=== PATIENT | male | born 1950 | race Caucasian/White ===

== ENCOUNTER 2016-07-28 06:57 | Day surgery (SDC) | payer MEDICARE, OTHER ==
[2016-07-28] MEDS ORDERED: LACTATED RINGERS 900 ML IV ONE (07:55)
[2016-07-28] MEDS ORDERED: MIDAZOLAM 2 MG/2 ML VIAL IVP ONE (08:40)
[2016-07-28] MEDS ORDERED: fentaNYL 100 MCG/2 ML VIAL IVP ONE (08:40)
== END 2016-07-28 06:58 | disposition home or self-care (01) ==
PROC: 0DBN8ZX Excision of Sigmoid Colon, Via Natural or Artificial Opening Endoscopic, Diagnostic (ICD-10-PCS; 2016-07-28)
PROC: 0DBP8ZX Excision of Rectum, Via Natural or Artificial Opening Endoscopic, Diagnostic (ICD-10-PCS; 2016-07-28)
PROC: 0DBM8ZX Excision of Descending Colon, Via Natural or Artificial Opening Endoscopic, Diagnostic (ICD-10-PCS; principal; 2016-07-28 08:15)
DX: Z86.010 Personal history of colon polyps (principal); K57.30 Diverticulosis of large intestine without perforation or abscess without bleeding; K64.8 Other hemorrhoids; D12.4 Benign neoplasm of descending colon; D12.5 Benign neoplasm of sigmoid colon; K62.1 Rectal polyp; Z79.82 Long term (current) use of aspirin; E11.42 Type 2 diabetes mellitus with diabetic polyneuropathy; E11.22 Type 2 diabetes mellitus with diabetic chronic kidney disease; N18.9 Chronic kidney disease, unspecified; I12.9 Hypertensive chronic kidney disease with stage 1 through stage 4 chronic kidney disease, or unspecified chronic kidney disease; Z85.6 Personal history of leukemia; Z98.49 Cataract extraction status, unspecified eye; Z83.3 Family history of diabetes mellitus; Z82.49 Family history of ischemic heart disease and other diseases of the circulatory system; Z79.84 Long term (current) use of oral hypoglycemic drugs
CPT/HCPCS: 45380; 45385; J7120

== ENCOUNTER 2016-08-19 14:59 | Outpatient (CLI) | payer MEDICARE, OTHER | END 2016-08-19 15:00 | disposition home or self-care (01) | DX: E11.9 Type 2 diabetes mellitus without complications (principal); Z12.5 Encounter for screening for malignant neoplasm of prostate | CPT/HCPCS: 36415; 83036; G0103 ==

== ENCOUNTER 2016-08-20 10:59 | Outpatient (CLI) | payer MEDICARE, OTHER | END 2016-08-20 23:59 | DX: R97.20 Elevated prostate specific antigen [PSA] (principal) ==

== ENCOUNTER 2016-10-11 08:45 | Outpatient (CLI) | payer MEDICARE, OTHER | END 2016-10-11 08:46 | disposition home or self-care (01) | LOC: LAB.R 08:45 | PROVIDERS: ATTEND Family Medicine | DX: R19.7 Diarrhea, unspecified (principal) | CPT/HCPCS: 81599; 83630; 87045; 87046; 87177; 87209; 87329; 87493 ==

== ENCOUNTER 2016-11-10 08:14 | Outpatient (CLI) | payer MEDICARE, OTHER ==
[2016-11-10 12:56] LABS: HEMOGLOBIN A1C 0.63 g/dL
[2016-11-10 13:07] LABS: ALBUMIN/GLOBULIN RATIO 1.4 (1.0-2.2); BILIRUBIN,TOTAL 0.6 mg/dL (0.2-1.0); BUN - BLOOD UREA NITROGEN 25 mg/dL (6-20); CARBON DIOXIDE - CO2 25 mmol/L (21-32); CHLORIDE 107 mmol/L (101-111); CHOL/HDL RATIO 4.8 (<5.0); CHOLESTEROL 138 mg/dL; CREATININE 1.4 mg/dL (0.6-1.2); GFR - MDRD 51 (>89); GLUCOSE 139 mg/dL (70-100); HDL CHOLESTEROL 29 mg/dL; POTASSIUM 4.8 mmol/L (3.5-5.0); SODIUM 140 mmol/L (135-145); TOTAL PROTEIN 6.6 g/dL (6.7-8.2); TRIGLYCERIDES 256 mg/dL; VLDL CHOLESTEROL 51 mg/dL
== END 2016-11-10 08:15 | disposition home or self-care (01) ==
LOC: LAB.WCP 08:14
PROVIDERS: ATTEND Family Medicine
DX: E78.9 Disorder of lipoprotein metabolism, unspecified (principal); D34 Benign neoplasm of thyroid gland
CPT/HCPCS: 36415; 80053; 80061; 83036; 84443

== ENCOUNTER 2016-12-24 05:23 | Outpatient (CLI) | payer MEDICARE, OTHER ==
--- NOTE | 2016-12-26 19:21 | PREOP HISTORY & PHYSICAL ---
DATE OF ADMISSION/SURGERY: 12/24/2016. LOCATION: ICU. CHIEF COMPLAINT: Near syncope and shaking chills. HISTORY OF THE PRESENT ILLNESS: This is a 66-year-old white male with a history of diabetes, sleep apnea, hypothyroidism, hypertension. His chart indicates that he has congestive heart failure, but he does not give this history to me. The patient states that he was in his usual state of health until approximately 1 week ago when he started to develop weakness and about 2 days ago started to develop shaking and chills. On the morning of admission, he was lethargic and nearly not arousable, and his called an ambulance. He was stabilized at the scene because of low blood pressure by being given fluid resuscitation and the ambulance brought him to the emergency room. There, he was found to have a fever, elevated white blood count and also complained of dysuria for approximately 36 hours' duration. He has never had these symptoms before. There was no pain in the lower back. He denied any pyuria. He denied any hematuria at home but did develop hematuria since being catheterized in the emergency room. PAST MEDICAL HISTORY: Includes hypertension, heart murmur, sleep apnea, diabetes on insulin and oral agents, and hypothyroidism. PAST SURGICAL HISTORY: Includes colonoscopy, cataracts, tonsils, and adenoid surgery. ALLERGIES: NONE. MEDICATIONS AT HOME 1. Synthroid 75 mcg p.o. daily. 2. Lisinopril 20 mg p.o. daily. 3. Metformin 1000 mg p.o. b.i.d. 4. Simvastatin 40 mg p.o. daily. 5. Ambien p.r.n. 6. Januvia 100 mg p.o. daily. 7. Baby aspirin daily. 8. Glucotrol XL 5 mg daily. 9. Lyrica 100 mg p.o. b.i.d. 10. Tanzeum 30 mg that he received once in July. FAMILY HISTORY: Noncontributory. SOCIAL HISTORY: He lives with his family. 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 He is a nonsmoker. He drinks alcohol very rarely. PHYSICAL EXAMINATION GENERAL: Physical exam revealed a white male who was supine and appeared fatigued. He was arousable, oriented x3. VITAL SIGNS: Blood pressure 96/55, heart rate 132 and sinus tachycardia, temperature 104. HEAD, EYES, EARS, NOSE, AND THROAT: Dry oral mucosa. Normal skin turgor. Red cheeks. NECK: No JVD in the supine position. CHEST: Clear at the anterior bases. HEART: Heart sounds normal but distant with no murmur, rub, or gallop. ABDOMEN: Soft, nontender, with positive bowel sounds. EXTREMITIES: No clubbing, cyanosis, or edema. NEUROLOGIC: Grossly intact. LABORATORY DATA: Sodium 138, potassium 5.6, CO2 18, BUN 32, creatinine 1.6, glucose 194. White blood count 5.0, hemoglobin 11.6, hematocrit 34.6, platelet count 82. Chest x-ray: No acute process. EKG: Sinus tachycardia at a rate of 129, right bundle branch block, left posterior fascicular block and nonspecific diffuse ST segment. There was no old EKG for comparison. IMPRESSION 1. Urosepsis with evidence of hypotension and recent dysuria. 2. Diabetes. 3. Hypotension secondary to urosepsis. 4. Acute renal insufficiency. 5. History of hypertension. RECOMMENDATIONS AND PLAN: Begin IV fluid resuscitation with saline at 125-150 mL an hour, given no evidence of congestive heart failure on chest x-ray and no history of the same per the patient. Begin IV antibiotics with throat coverage and change antibiotic coverage depending on results of his urine and blood cultures. Obtain urine and blood cultures. Continue with his diabetic management. Hold his blood pressure medications until blood pressure has improved. DVT prophylaxis will be postponed until hematuria is cleared. Continue with diabetic diet and cover his glucose fingerstick checks. Thank you for allowing me to participate in the care of this patient. JOB #: [id number] [facility] JOB #:[id number] [facility]
== END 2016-12-24 05:24 | disposition critical access hospital (66) ==
LOC: EMS 05:23
PROVIDERS: ATTEND Surgery
DX: R25.1 Tremor, unspecified (principal)
CPT/HCPCS: A0425; A0427

== ENCOUNTER 2016-12-24 05:42 | Inpatient (IN) | payer MEDICARE, OTHER ==
[2016-12-24] MEDS ORDERED: ACETAMINOPHEN 1,000 MG/100 ML 100 ML IV STA (05:48)
[2016-12-24] MEDS ORDERED: SODIUM CHLORIDE 0.9% 1,000 ML IV ONE ×3 (05:48→09:24)
[2016-12-24] MEDS ORDERED: ACETAMINOPHEN 1,000 MG/100 ML 100 ML IV ONE (06:05)
[2016-12-24 06:10] LABS: BASOPHILS % (AUTO) 0.3 %; EOSINOPHILS % (AUTO) 0.3 %; HCT - HEMATOCRIT 40.3 % (42.0-52.0); HGB - HEMOGLOBIN 13.5 g/dL (14.0-18.0); LYMPHOCYTES # (AUTO) 1.1 10^3/uL (1.5-3.5); LYMPHOCYTES % (AUTO) 26.4 %; MEAN CORPUSCULAR HEMOGLOBIN 30.7 pg (27.0-31.0); MEAN CORPUSCULAR HGB CONC 33.5 g/dL (32.0-36.0); MEAN CORPUSCULAR VOLUME 91.8 fL (80.0-94.0); MEAN PLATELET VOLUME 7.5 fL (7.4-11.4); MONOCYTES # (AUTO) 0.1 10^3/uL (0.0-1.0); MONOCYTES % (AUTO) 3.4 %; NEUTROPHILS # (AUTO) 2.8 10^3/uL (1.5-6.6); NEUTROPHILS % (AUTO) 69.6 %; RED BLOOD COUNT 4.39 10^6/uL (4.70-6.10); RED CELL DISTRIBUTION WIDTH 14.6 % (12.0-15.0)
[2016-12-24 06:27] LABS: ALBUMIN/GLOBULIN RATIO 1.3 (1.0-2.2); BILIRUBIN,TOTAL 1.2 mg/dL (0.2-1.0); CALCIUM 8.6 mg/dL (8.5-10.3); CREATININE 1.9 mg/dL (0.6-1.2); TOTAL PROTEIN 6.8 g/dL (6.7-8.2)
[2016-12-24] MEDS ORDERED: ALBUTEROL NEB 2.5 MG/3 ML INH STA (06:30)
[2016-12-24] MEDS ORDERED: ALBUTEROL SULF 0.5% 20ML SOLUTION INH ONE (06:38)
[2016-12-24] MEDS ORDERED: ALBUTEROL NEB 2.5 MG/3 ML INH ONE (06:39)
--- NOTE | 2016-12-24 06:45 | XRAY Preliminary Report ---
Exam: XR Chest 1 View IMPRESSION: No acute process seen in the chest. [facility] SITE ID: [id number]
--- NOTE | 2016-12-24 06:48 | XRAY Report ---
EXAM: CHEST RADIOGRAPHY EXAM DATE: 12/24/2016 06:20 AM. CLINICAL HISTORY: Fever, rigors. COMPARISON: 01/05/2012. TECHNIQUE: 1 view. FINDINGS: Lungs/Pleura: No focal opacities evident. No pleural effusion. No pneumothorax. Mediastinum: Within exam limitations, cardiomediastinal contour is normal. Other: Mild right hemidiaphragm elevation. IMPRESSION: No acute process seen in the chest. [facility] Referring Provider Line: [phone] SITE ID: [id number]
--- NOTE | 2016-12-24 06:57 | ED Physician Documentation ---
PD HPI FEVER - Stated complaint Stated Complaint: UNCONTROLABLE SHAKING - Chief complaint Chief Complaint: General - History obtained from History obtained from: Patient, Family, EMS - History of Present Illness Timing - onset: Yesterday Timing details: Gradual onset, Still present, Waxing and waning Associated symptoms: Chills, Sweats, Rigors Contributing factors: No: Sick contact, Travel, Immunocompromised Similar symptoms before: No diagnosis Recently seen: Not recently seen - Additional information Additional information: Patient is a 66 year old male with a history of diabetes and hairy cell lukemia in remission who is presenting to the emergency department for fevers and rigors. According to ems and family, yesterday patient was spiking some fevers but they were controlled by ibuprofen. By last night the patient's fever had broke. This morning the heard the patient stirring and when she saw him she was shaking so they called ems. when ems arrived patietn was febrile and less coherent. IV was started and patient was treated with zofran. Review of Systems Constitutional: reports: Fever, Chills Eyes: denies: Photophobia Ears: denies: Ear pain, Drainage/discharge Nose: denies: Congestion Throat: denies: Sore throat Respiratory: denies: Cough, Wheezing GI: reports: Nausea. denies: Vomiting : reports: Frequency Skin: denies: Rash, Lesions Musculoskeletal: denies: Extremity pain Neurologic: reports: Confused, Altered mental status. denies: Focal weakness, Numbness, Headache, Head injury, LOC Immunocompromised: denies: Immunocompromised PD PAST MEDICAL HISTORY - Past Medical History Cardiovascular: Congestive heart failure, Hypertension, Murmur Respiratory: Sleep apnea Neuro: None Endocrine/Autoimmune: Type 2 diabetes, HyPOthyroidism GI: None : None HEENT: None Psych: None Musculoskeletal: None Derm: None - Past Surgical History Past Surgical History: Yes General: Colonoscopy HEENT: Cataracts, Tonsil/Adenoidectomy - Present Medications Home Medications: Ambulatory Orders Medication Instructions Recorded Confirmed Levothyroxine Sodium [Synthroid] 75 mcg PO DAILY 10/05/12 12/24/16 Lisinopril 20 mg PO DAILY 10/05/12 12/24/16 Metformin HCl [Metformin 1,000 mg PO BID 10/05/12 12/24/16 Hydrochloride] Simvastatin 40 mg PO DAILY 10/05/12 12/24/16 Zolpidem Tartrate [Ambien] 10 mg PO DAILY PRN 10/05/12 12/24/16 SITagliptin [Januvia] 100 mg PO DAILY 01/02/15 12/24/16 Aspirin [Aspirin EC] 81 mg PO DAILY 02/20/15 12/24/16 Glipizide [Glucotrol Xl] 5 mg PO DAILY 02/20/15 12/24/16 Pregabalin [Lyrica] 100 mg PO BID 02/20/15 12/24/16 Albiglutide [Tanzeum] 30 mg IJ ONCE 07/08/16 12/24/16 - Allergies Allergies/Adverse Reactions: Allergies Allergy/AdvReac Type Severity Reaction Status Date / Time No Known Drug Allergies Allergy Verified 04/15/16 00:57 - Social History Does the pt smoke?: No Smoking Status: Never smoker Does the pt drink ETOH?: No Does the pt have substance abuse?: No - Immunizations Immunizations are current?: Yes - POLST Patient has POLST: No PD ED PE EXPANDED - General General: Alert, Other (ill appearing, diaphoretic) - HEENT HEENT: Atraumatic, Dry mucous membranes. No: Head injury - Cardiac Cardiac: Tachy - Respiratory Respiratory: No: Distress, Labored, Wheezing - Abdomen Abdomen: No: Tender to palpation, Rebound, Guarding - Derm Derm: Diaphoretic. No: Rash - GCS Eye Opening: Spontaneous Motor: Localizes to Pain Verbal: Confused Total: 13 Results - Vitals Vitals: Vital Signs - 24 hr 12/24/16 12/24/16 12/24/16 05:45 06:43 06:48 Temperature 104.0 C H Heart Rate 132 H 104 H 104 H Respiratory 24 18 16 Rate Blood Pressure 131/61 H 130/57 L O2 Saturation 93 94 12/24/16 12/24/16 12/24/16 07:10 07:45 09:00 Temperature 37.3 C 36.8 C Heart Rate 108 H 110 H 101 H Respiratory 23 24 24 Rate Blood Pressure 105/51 L 106/52 L 96/55 L O2 Saturation 96 98 95 Oxygen O2 Source Room air - EKG (time done) 0608 Rate: Rate (enter#) (129) Rhythm: Sinus tachycardia [place]: Normal Intervals: RBBB Ischemia: ST depression Compare to prior EKG: Unchanged from prior EKG, Other (similar to previous, no tachycardic no bigeminy) - Labs Labs: Microbiology 12/24/16 06:07 Blood Culture - Preliminary Blood - Left Arm 12/24/16 06:00 Blood Culture - Preliminary Blood - Left Hand Laboratory Tests 12/24/16 12/24/16 12/24/16 06:00 06:00 06:00 WBC 4.0 L RBC 4.39 L Hgb 13.5 L Hct 40.3 L MCV 91.8 MCH 30.7 MCHC 33.5 RDW 14.6 Plt Count 97 L MPV 7.5 Neut # 2.8 Lymph # 1.1 L [place] # 0.1 Eos # 0.0 Baso # 0.0 Absolute Nucleated RBC 0.00 Nucleated RBCs 0.0 Sodium 135 Potassium 6.0 H* Chloride 108 Carbon Dioxide 17 L Anion Gap 10.0 BUN 34 H Creatinine 1.9 H Estimated GFR (MDRD) 36 L Glucose 283 H Glycated Hemoglobin Estim Average Glucose Lactic Acid 2.2 Calcium 8.6 Total Bilirubin 1.2 H AST 32 ALT 34 Alkaline Phosphatase 47 Total Creatine Kinase CK-MB (CK-2) Troponin I Total Protein 6.8 Albumin 3.8 Globulin 3.0 Albumin/Globulin Ratio 1.3 Lipase 44 TSH Urine Color Urine Clarity Urine pH Ur Specific [place] Urine Protein Urine Glucose (UA) Urine Ketones Urine Occult Blood Urine Nitrite Urine Bilirubin Urine Urobilinogen Ur Leukocyte Esterase Urine RBC Urine WBC Ur Epithelial Cells Ur Squamous Epith Cells Urine Bacteria Urine Casts Ur Microscopic Review Urine Culture Comments 12/24/16 12/24/16 12/24/16 06:00 06:00 06:00 WBC RBC Hgb Hct MCV MCH MCHC RDW Plt Count MPV Neut # Lymph # [place] # Eos # Baso # Absolute Nucleated RBC Nucleated RBCs Sodium Potassium Chloride Carbon Dioxide Anion Gap BUN Creatinine Estimated GFR (MDRD) Glucose Glycated Hemoglobin Estim Average Glucose Lactic Acid Calcium Total Bilirubin AST ALT Alkaline Phosphatase Total Creatine Kinase 70 CK-MB (CK-2) Troponin I < 0.04 Total Protein Albumin Globulin Albumin/Globulin Ratio Lipase TSH 1.30 Urine Color Urine Clarity Urine pH Ur Specific [place] Urine Protein Urine Glucose (UA) Urine Ketones Urine Occult Blood Urine Nitrite Urine Bilirubin Urine Urobilinogen Ur Leukocyte Esterase Urine RBC Urine WBC Ur Epithelial Cells Ur Squamous Epith Cells Urine Bacteria Urine Casts Ur Microscopic Review Urine Culture Comments 12/24/16 12/24/1617 06:00 06:00 06:00 WBC RBC Hgb Hct MCV MCH MCHC RDW Plt Count MPV Neut # Lymph # [place] # Eos # Baso # Absolute Nucleated RBC Nucleated RBCs Sodium Potassium 4.6 Chloride Carbon Dioxide Anion Gap BUN Creatinine Estimated GFR (MDRD) Glucose Glycated Hemoglobin 6.4 H Estim Average Glucose 137 H Lactic Acid Calcium Total Bilirubin AST ALT Alkaline Phosphatase Total Creatine Kinase CK-MB (CK-2) 0.7 Troponin I Total Protein Albumin Globulin Albumin/Globulin Ratio Lipase TSH Urine Color Urine Clarity Urine pH Ur Specific [place] Urine Protein Urine Glucose (UA) Urine Ketones Urine Occult Blood Urine Nitrite Urine Bilirubin Urine Urobilinogen Ur Leukocyte Esterase Urine RBC Urine WBC Ur Epithelial Cells Ur Squamous Epith Cells Urine Bacteria Urine Casts Ur Microscopic Review Urine Culture Comments 12/24/16 07:20 WBC RBC Hgb Hct MCV MCH MCHC RDW Plt Count MPV Neut # Lymph # [place] # Eos # Baso # Absolute Nucleated RBC Nucleated RBCs Sodium Potassium Chloride Carbon Dioxide Anion Gap BUN Creatinine Estimated GFR (MDRD) Glucose Glycated Hemoglobin Estim Average Glucose Lactic Acid Calcium Total Bilirubin AST ALT Alkaline Phosphatase Total Creatine Kinase CK-MB (CK-2) Troponin I Total Protein Albumin Globulin Albumin/Globulin Ratio Lipase TSH Urine Color DARK YELLOW Urine Clarity HAZY Urine pH 6.0 Ur Specific [place] 1.025 Urine Protein 30 H Urine Glucose (UA) NEGATIVE Urine Ketones NEGATIVE Urine Occult Blood NEGATIVE Urine Nitrite NEGATIVE Urine Bilirubin NEGATIVE Urine Urobilinogen 0.2 (NORMAL) Ur Leukocyte Esterase NEGATIVE Urine RBC None Seen Urine WBC 6-10 H Ur Epithelial Cells RARE Renal Tubular Ur Squamous Epith Cells NONE SEEN Urine Bacteria Moderate H Urine Casts 6-10 Course Granular Ur Microscopic Review INDICATED Urine Culture Comments INDICATED - Rads (name of study) chest x-ray Radiology: Final report received (no acute abnormality) PD MEDICAL DECISION MAKING - ED course Complexity details: reviewed old records, reviewed results, re-evaluated patient , considered differential, d/w patient, d/w family ED course: Patient was seen and examined at bedside. IV access was gained and labs were drawn. blood cultures were drawn and patient was started on a fluid bolus and treated with IV tyenol. chest x-ray was performed and within normal limits. Patient's tachycardia improved. Patient was signed over to Dr. Whiting pending disposition and plan. Departure - Departure Disposition: 66 [facility] DC/Xfer Clinical Impression: Sepsis Condition: Fair Discharge Date/Time: 12/24/16 10:10
--- NOTE | 2016-12-24 07:25 | ED Physician Documentation ---
History of Present Illness - Stated complaint Stated Complaint: UNCONTROLABLE SHAKING - Chief complaint Chief Complaint: General - Additonal information Additional information: assumed care 7 AM hx from pt and 66 male presents to ER with shaking chills, fever to 104 AMS denies FRIAS CP AP NVD and cough has had urinary freq well healed ulcer to planatr aspect R great toe no other skin lesions or sores has had labs (lacate 2) CXR (neg) blood cx and IVF waiting on UA (first sample was collected in a bed vitale with stool so not of any use for this work up) pt feeling a bit better butt still tachy to 110 with sitting up, still mildly confused, still warm and sweaty to the touch Review of Systems Constitutional: reports: Fever, Chills, Myalgias, Fatigue, Sweats Throat: denies: Sore throat Cardiac: denies: Chest pain / pressure Respiratory: denies: Dyspnea, Cough GI: denies: Abdominal Pain, Nausea, Vomiting, Diarrhea : reports: Frequency Skin: denies: Rash, Lesions Musculoskeletal: denies: Neck pain Neurologic: denies: Headache Endocrine: denies: Easy bruising / bleeding Immunocompromised: denies: Immunocompromised PD PAST MEDICAL HISTORY - Past Medical History Cardiovascular: Congestive heart failure, Hypertension, Murmur Respiratory: Sleep apnea Neuro: None Endocrine/Autoimmune: Type 2 diabetes, HyPOthyroidism GI: None : None HEENT: None Psych: None Musculoskeletal: None Derm: None - Past Surgical History Past Surgical History: Yes General: Colonoscopy HEENT: Cataracts, Tonsil/Adenoidectomy - Present Medications Home Medications: Ambulatory Orders Medication Instructions Recorded Confirmed Levothyroxine Sodium [Synthroid] 75 mcg PO DAILY 10/05/12 12/24/16 Lisinopril 20 mg PO DAILY 10/05/12 12/24/16 Metformin HCl [Metformin 1,000 mg PO BID 10/05/12 12/24/16 Hydrochloride] Simvastatin 40 mg PO DAILY 10/05/12 12/24/16 Zolpidem Tartrate [Ambien] 10 mg PO DAILY PRN 10/05/12 12/24/16 SITagliptin [Januvia] 100 mg PO DAILY 01/02/15 12/24/16 Aspirin [Aspirin EC] 81 mg PO DAILY 02/20/15 12/24/16 Glipizide [Glucotrol Xl] 5 mg PO DAILY 02/20/15 12/24/16 Pregabalin [Lyrica] 100 mg PO BID 02/20/15 12/24/16 Albiglutide [Tanzeum] 30 mg IJ ONCE 07/08/16 12/24/16 - Allergies Allergies/Adverse Reactions: Allergies Allergy/AdvReac Type Severity Reaction Status Date / Time No Known Drug Allergies Allergy Verified 04/15/16 00:57 - Social History Does the pt smoke?: No Smoking Status: Never smoker Does the pt drink ETOH?: No Does the pt have substance abuse?: No - Immunizations Immunizations are current?: Yes - POLST Patient has POLST: No PD ED PE NORMAL - Vitals Vital signs reviewed: Yes - General General: Alert and oriented X 3, Other (warm to touch and diaphoretic) - HEENT HEENT: PERRL - Neck Neck: Supple, no meningeal sign - Cardiac Cardiac: RRR - Respiratory Respiratory: No respiratory distress, Clear bilaterally - Abdomen Abdomen: Soft, Non tender - Derm Derm: Other (pale and sweaty, well healed ulcer plantar surface R great toe, no sacral decub) - Extremities Extremities: No deformity - Neuro Neuro: Alert and oriented X 3 Results - Vitals Vitals: Vital Signs - 24 hr 12/24/16 12/24/16 12/24/16 05:45 06:43 06:48 Temperature 104.0 C H Heart Rate 132 H 104 H 104 H Respiratory 24 18 16 Rate Blood Pressure 131/61 H 130/57 L O2 Saturation 93 94 12/24/16 12/24/16 12/24/16 07:10 07:45 09:00 Temperature 37.3 C 36.8 C Heart Rate 108 H 110 H 101 H Respiratory 23 24 24 Rate Blood Pressure 105/51 L 106/52 L 96/55 L O2 Saturation 96 98 95 Oxygen O2 Source Room air - Labs Labs: Laboratory Tests 12/24/16 12/24/16 12/24/16 06:00 06:00 06:00 WBC 4.0 L RBC 4.39 L Hgb 13.5 L Hct 40.3 L MCV 91.8 MCH 30.7 MCHC 33.5 RDW 14.6 Plt Count 97 L MPV 7.5 Neut # 2.8 Lymph # 1.1 L [place] # 0.1 Eos # 0.0 Baso # 0.0 Absolute Nucleated RBC 0.00 Nucleated RBCs 0.0 Sodium 135 Potassium 6.0 H* Chloride 108 Carbon Dioxide 17 L Anion Gap 10.0 BUN 34 H Creatinine 1.9 H Estimated GFR (MDRD) 36 L Glucose 283 H Lactic Acid 2.2 Calcium 8.6 Total Bilirubin 1.2 H AST 32 ALT 34 Alkaline Phosphatase 47 Total Creatine Kinase CK-MB (CK-2) Troponin I Total Protein 6.8 Albumin 3.8 Globulin 3.0 Albumin/Globulin Ratio 1.3 Lipase 44 TSH Urine Color Urine Clarity Urine pH Ur Specific [place] Urine Protein Urine Glucose (UA) Urine Ketones Urine Occult Blood Urine Nitrite Urine Bilirubin Urine Urobilinogen Ur Leukocyte Esterase Urine RBC Urine WBC Ur Epithelial Cells Ur Squamous Epith Cells Urine Bacteria Urine Casts Ur Microscopic Review Urine Culture Comments 12/24/16 12/24/16 12/24/16 06:00 06:00 06:00 WBC RBC Hgb Hct MCV MCH MCHC RDW Plt Count MPV Neut # Lymph # [place] # Eos # Baso # Absolute Nucleated RBC Nucleated RBCs Sodium Potassium Chloride Carbon Dioxide Anion Gap BUN Creatinine Estimated GFR (MDRD) Glucose Lactic Acid Calcium Total Bilirubin AST ALT Alkaline Phosphatase Total Creatine Kinase 70 CK-MB (CK-2) Troponin I < 0.04 Total Protein Albumin Globulin Albumin/Globulin Ratio Lipase TSH 1.30 Urine Color Urine Clarity Urine pH Ur Specific [place] Urine Protein Urine Glucose (UA) Urine Ketones Urine Occult Blood Urine Nitrite Urine Bilirubin Urine Urobilinogen Ur Leukocyte Esterase Urine RBC Urine WBC Ur Epithelial Cells Ur Squamous Epith Cells Urine Bacteria Urine Casts Ur Microscopic Review Urine Culture Comments 12/24/16 12/24/16 12/24/16 06:00 06:00 07:20 WBC RBC Hgb Hct MCV MCH MCHC RDW Plt Count MPV Neut # Lymph # [place] # Eos # Baso # Absolute Nucleated RBC Nucleated RBCs Sodium Potassium 4.6 Chloride Carbon Dioxide Anion Gap BUN Creatinine Estimated GFR (MDRD) Glucose Lactic Acid Calcium Total Bilirubin AST ALT Alkaline Phosphatase Total Creatine Kinase CK-MB (CK-2) 0.7 Troponin I Total Protein Albumin Globulin Albumin/Globulin Ratio Lipase TSH Urine Color DARK YELLOW Urine Clarity HAZY Urine pH 6.0 Ur Specific [place] 1.025 Urine Protein 30 H Urine Glucose (UA) NEGATIVE Urine Ketones NEGATIVE Urine Occult Blood NEGATIVE Urine Nitrite NEGATIVE Urine Bilirubin NEGATIVE Urine Urobilinogen 0.2 (NORMAL) Ur Leukocyte Esterase NEGATIVE Urine RBC None Seen Urine WBC 6-10 H Ur Epithelial Cells RARE Renal Tubular Ur Squamous Epith Cells NONE SEEN Urine Bacteria Moderate H Urine Casts 6-10 Course Granular Ur Microscopic Review INDICATED Urine Culture Comments INDICATED PD MEDICAL DECISION MAKING - ED course ED course: obtained cath urine after obtaining urine started invanz for broad spectrum coverage given 2 L bolus (20cc/kg not 30 due to hx CHF and clinical improvement) then 150 /hr called for admit at 8 AM at 10 AM pt still in ER waiting for bed and nurse while waiting for ICU bed BP dropping, gave another fluid bolus BP 91 hospitalist updated, another IV obtained, may need a central line but going to ICU now so can be placed there Departure - Departure Disposition: 66 [facility] DC/Xfer Clinical Impression: Sepsis Qualifiers: Sepsis type: sepsis due to unspecified organism Qualified Code(s): A41.9 - Sepsis, unspecified organism Condition: Fair
[2016-12-24 07:34] LABS: BILIRUBIN,URINE NEGATIVE (NEGATIVE)
[2016-12-24] MEDS ORDERED: ERTAPENEM 1 GM in SODIUM CHLORIDE 0.9% MINIBAG 100 ML IV STA (07:49)
[2016-12-24 07:50] LABS: UA w/ MICROSCOPIC CHARGE YES
[2016-12-24 07:51] LABS: UR CULTURE IF IND INDICATED
[2016-12-24] MEDS: SODIUM CHLORIDE 0.9% 1,000 ML IV ONE ×2 (08:01→11:47)
[2016-12-24 12:39] LABS: HCT - HEMATOCRIT 34.6 % (42.0-52.0); HGB - HEMOGLOBIN 11.6 g/dL (14.0-18.0); LYMPHOCYTES # (AUTO) 0.3 10^3/uL (1.5-3.5); LYMPHOCYTES % (AUTO) 6.4 %; MEAN CORPUSCULAR HEMOGLOBIN 30.9 pg (27.0-31.0); MEAN CORPUSCULAR HGB CONC 33.7 g/dL (32.0-36.0); MEAN CORPUSCULAR VOLUME 91.9 fL (80.0-94.0); MEAN PLATELET VOLUME 7.4 fL (7.4-11.4); MONOCYTES # (AUTO) 0.3 10^3/uL (0.0-1.0); MONOCYTES % (AUTO) 6.4 %; NEUTROPHILS # (AUTO) 4.3 10^3/uL (1.5-6.6); NEUTROPHILS % (AUTO) 87.2 %; RED BLOOD COUNT 3.76 10^6/uL (4.70-6.10); RED CELL DISTRIBUTION WIDTH 14.3 % (12.0-15.0)
[2016-12-24 12:53] LABS: PHOSPHORUS 1.5 mg/dL (2.5-4.6)
[2016-12-24 12:57] LABS: HEMOGLOBIN A1C 0.59 g/dL
[2016-12-24 15:52] LABS: CALCIUM 7.7 mg/dL (8.5-10.3); CREATININE 1.6 mg/dL (0.6-1.2); MAGNESIUM 1.6 mg/dL (1.7-2.8); POTASSIUM 5.6 mmol/L (3.5-5.0)
--- NOTE | 2016-12-24 18:54 | HISTORY & PHYSICAL EXAMINATION ---
Chief Complaint - Chief Complaint Chief Complaint: See dictated report. Imp: Urosepsis with dysuria and hypotension. History - Past Medical History Cardiovascular: reports: Congestive heart failure, Hypertension, Murmur Respiratory: reports: Sleep apnea Neuro: reports: None Endocrine/Autoimmune: reports: Type 2 diabetes, HyPOthyroidism GI: reports: None : reports: None HEENT: reports: None Psych: reports: None Musculoskeletal: reports: None Derm: reports: None MRSA Hx?: No - Past Surgical History General: reports: Colonoscopy HEENT: reports: Cataracts, Tonsil/Adenoidectomy - POLST Patient has POLST: No Meds/Allgy - Home Medications Home Medications: Ambulatory Orders Medication Instructions Recorded Confirmed Levothyroxine Sodium [Synthroid] 75 mcg PO DAILY 10/05/12 12/24/16 Lisinopril 20 mg PO DAILY 10/05/12 12/24/16 Metformin HCl [Metformin 1,000 mg PO BID 10/05/12 12/24/16 Hydrochloride] Simvastatin 40 mg PO DAILY 10/05/12 12/24/16 Zolpidem Tartrate [Ambien] 10 mg PO DAILY PRN 10/05/12 12/24/16 SITagliptin [Januvia] 100 mg PO DAILY 01/02/15 12/24/16 Aspirin [Aspirin EC] 81 mg PO DAILY 02/20/15 12/24/16 Glipizide [Glucotrol Xl] 5 mg PO DAILY 02/20/15 12/24/16 Pregabalin [Lyrica] 100 mg PO BID 02/20/15 12/24/16 Albiglutide [Tanzeum] 30 mg IJ ONCE 07/08/16 12/24/16 Insulin Aspart [NovoLOG] 1 - 9 unit SUBQ 12/26/16 0800,1200,1700,2100 pen Insulin Glargine [Lantus Solostar] 10 unit SUBQ QPM pen 12/26/16 Levofloxacin [Levaquin] 750 mg PO DAILY #3 tablet 12/26/16 - Allergies Allergies/Adverse Reactions: Allergies Allergy/AdvReac Type Severity Reaction Status Date / Time No Known Drug Allergies Allergy Verified 04/15/16 00:57 Exam - Vital Signs Vital Signs: Vital Signs x48h Temp Pulse Resp BP Pulse Ox 12/24/16 18:00 71 12 104/61 98 12/24/16 17:00 80 H 121/81 H 99 12/24/16 15:57 36.6 C 73 12 100/60 99 12/24/16 15:00 77 16 104/69 98 12/24/16 14:00 76 18 95/63 98 12/24/16 13:00 80 20 98/60 99 12/24/16 12:00 88 20 90/65 96 12/24/16 11:00 85 16 92/61 95 Conclusion/Plan - Lab Results Fish Bones: 12/26/16 04:25 12/26/16 04:25 Issues/Core Measures - Anticipated LOS Anticipated Stay Length: 2 or more midnights
[2016-12-24] MEDS: SODIUM CHLORIDE 0.9% 1,000 ML IV SCH ×2 (19:48→21:41)
[2016-12-24 21:06] LABS: HEMOGLOBIN A1C 0.66 g/dL
[2016-12-24] MEDS: ZOLPIDEM 5 MG TABLET PO PRN (21:24)
[2016-12-24] MEDS: ACETAMINOPHEN 325 MG TABLET PO PRN (21:24)
[2016-12-24] MEDS: PREGABALIN 100 MG CAPSULE PO SCH (21:25)
[2016-12-24] MEDS: INSULIN ASPART 300 UNIT/3 ML PEN SUBQ SCH (21:26)
[2016-12-24] MEDS: INSULIN GLARGINE 300 UNIT/3 ML PEN SUBQ SCH (21:26)
[2016-12-24] MEDS: SODIUM CHLORIDE FLUSH 0.9% 10 ML SYRINGE IVP SCH (21:29)
[2016-12-25] MEDS: SODIUM CHLORIDE 0.9% 1,000 ML IV SCH ×3 (04:29→22:08)
[2016-12-25] MEDS: ACETAMINOPHEN 325 MG TABLET PO PRN ×2 (04:32→19:21)
[2016-12-25 05:04] LABS: BASOPHILS % (AUTO) 0.1 %; EOSINOPHILS % (AUTO) 0.3 %; HCT - HEMATOCRIT 35.1 % (42.0-52.0); HGB - HEMOGLOBIN 11.8 g/dL (14.0-18.0); LYMPHOCYTES # (AUTO) 0.4 10^3/uL (1.5-3.5); MEAN CORPUSCULAR HEMOGLOBIN 31.4 pg (27.0-31.0); MEAN CORPUSCULAR HGB CONC 33.5 g/dL (32.0-36.0); MEAN CORPUSCULAR VOLUME 93.8 fL (80.0-94.0); MEAN PLATELET VOLUME 7.6 fL (7.4-11.4); MONOCYTES # (AUTO) 0.2 10^3/uL (0.0-1.0); MONOCYTES % (AUTO) 7.2 %; NEUTROPHILS # (AUTO) 2.6 10^3/uL (1.5-6.6); NEUTROPHILS % (AUTO) 79.4 %; NUCLEATED RED BLOOD CELLS AUTO 0.1 /100WBC; RED BLOOD COUNT 3.74 10^6/uL (4.70-6.10); RED CELL DISTRIBUTION WIDTH 15.1 % (12.0-15.0); UNCORRECTED WHITE BLOOD COUNT 3.3 x10^3/uL; WHITE BLOOD COUNT 3.3 x10^3/uL (4.8-10.8)
[2016-12-25 05:05] LABS: CALCIUM 7.5 mg/dL (8.5-10.3); CREATININE 1.7 mg/dL (0.6-1.2); POTASSIUM 4.8 mmol/L (3.5-5.0)
[2016-12-25 05:35] LABS: MAGNESIUM 1.6 mg/dL (1.7-2.8); PHOSPHORUS 2.2 mg/dL (2.5-4.6)
[2016-12-25 05:58] LABS: CALCIUM 7.6 mg/dL (8.5-10.3)
[2016-12-25 05:59] LABS: CALCIUM, IONIZED 1.07 mmol/L (1.15-1.33); VBG PH 7.273 (7.31-7.41)
[2016-12-25] MEDS: LEVOTHYROXINE 75 MCG TABLET PO SCH (06:44)
[2016-12-25] MEDS: SODIUM CHLORIDE FLUSH 0.9% 10 ML SYRINGE IVP SCH ×3 (06:44→20:44)
[2016-12-25] MEDS: MAGNESIUM OXIDE 400 MG TABLET PO SCH ×2 (06:44→12:15)
[2016-12-25] MEDS ORDERED: MAGNESIUM SULFATE 1 GM in SODIUM CHLORIDE 0.9% 50 ML IV ONE (08:18)
[2016-12-25] MEDS: INSULIN ASPART 300 UNIT/3 ML PEN SUBQ SCH ×4 (08:29→20:42)
[2016-12-25] MEDS: NEUTRA-PHOS 250 MG TABLET PO SCH ×2 (08:31→14:14)
[2016-12-25] MEDS: PREGABALIN 100 MG CAPSULE PO SCH ×2 (08:31→20:41)
[2016-12-25] MEDS: ASPIRIN EC 81 MG TABLET PO SCH (10:48)
--- NOTE | 2016-12-25 20:11 | PROVIDER PROGRESS NOTE ---
Assessment/Plan - Problem List (1) Sepsis Qualifiers: Sepsis type: sepsis due to unspecified organism Qualified Code(s): A41.9 - Sepsis, unspecified organism Assessment/Plan: Hypotension and tachycardia resolved. Pt still spiking fevers. Will continue present fluid and antibiotic management. Pt stable for transfer to Med/Surg unit. (2) UTI (urinary tract infection), bacterial Assessment/Plan: Hematuria diminishing. Pt will need Urology evaluation after inpt care. (3) Diabetes Qualifiers: Diabetes mellitus type: type 2 Diabetes mellitus complication status: without complication Assessment/Plan: Continue management. - Current Meds Current Meds: Current Medications Generic Name Dose Route Start Last Admin Trade Name Freq PRN Reason Stop Dose Admin Acetaminophen 650 mg 12/24/16 21:09 12/25/16 19:21 Tylenol PO 650 mg Q4HR PRN Administration Pain or Fever > 38C (100.4F) Aspirin 81 mg 12/25/16 09:00 12/25/16 10:48 Ecotrin PO Not Given DAILY NAYA Sodium Chloride 1,000 mls @ 125 mls/hr 12/24/16 12:00 12/25/16 13:29 Normal Saline 0.9% IV 125 mls/hr .Q8H NAYA Administration Levofloxacin 100 mls @ 100 mls/hr 12/24/16 20:00 12/25/16 19:21 Levaquin 500 Mg/100 Ml IV 100 mls/hr Q24H NAYA Administration Insulin Aspart 1 - 9 unit 12/24/16 21:00 12/25/16 17:17 Novolog SUBQ 1 unit 0800,1200,1700,2100 NAYA Administration Protocol Insulin Glargine 10 unit 12/24/16 21:00 12/24/16 21:26 Lantus Solostar SUBQ 10 unit QPM NAYA Administration Levothyroxine Sodium 75 mcg 12/25/16 07:00 12/25/16 06:44 Synthroid PO 75 mcg QDAC NAYA Administration Pregabalin 100 mg 12/24/16 21:00 12/25/16 08:31 Lyrica PO 100 mg BID NAYA Administration Sodium Chloride 10 ml 12/24/16 22:00 12/25/16 17:21 Normal Saline Flush 0.9% IVP 10 ml Q8HR NAYA Administration Zolpidem Tartrate 10 mg 12/24/16 19:53 12/24/16 21:24 Ambien PO 10 mg DAILY PRN Administration Insomnia - Lab Result Fish Bone Diagrams: 12/25/16 04:39 12/25/16 04:39 Other Lab Results: Urine Cx pos for BN Rods Blood Cx pos for Citrobacter species, no sensitivities yet. - Additional Planning My Orders: My Active Orders 12/24/16 22:00 Sodium Chloride Flush 0.9% [Normal Saline Flush 0.9%] 10 ml IVP Q8HR 12/25/16 08:50 Activity Orders [RC] QSHIFT Subjective - Subjective Patient Reports: Feeling Better, Other (Pt did note hematuria which is slowly resolving.) Nursing Reports: Other (Pt had fever overnight and again this afternoon.) Objective Vital Signs: Vital Signs - 24 hr 12/24/16 12/24/16 12/24/16 21:00 22:00 23:00 Temperature Heart Rate [ 93 86 93 Monitoring electrodes] Respiratory 15 21 15 Rate Blood Pressure 131/65 H 122/64 131/65 H [Left Brachial artery] O2 Saturation 100 98 100 12/25/16 12/25/16 12/25/16 00:00 01:00 02:00 Temperature 37.6 C H Heart Rate [ 94 82 81 Monitoring electrodes] Respiratory 23 25 H 18 Rate Blood Pressure 119/67 100/55 L 111/64 [Left Brachial artery] O2 Saturation 95 12/25/16 12/25/16 12/25/16 03:05 04:00 04:42 Temperature 38.0 C H Heart Rate [ 80 92 Monitoring electrodes] Respiratory 18 27 H Rate Blood Pressure 111/53 L 132/63 H [Left Brachial artery] O2 Saturation 97 95 12/25/16 12/25/16 12/25/16 05:00 06:00 06:50 Temperature 37.0 C Heart Rate [ 85 100 Monitoring electrodes] Respiratory 22 20 Rate Blood Pressure 123/64 125/71 [Left Brachial artery] O2 Saturation 93 94 12/25/16 12/25/16 12/25/16 07:00 08:00 09:00 Temperature Heart Rate [ 75 87 78 Monitoring electrodes] Respiratory 18 22 16 Rate Blood Pressure 122/68 117/65 135/66 H [Left Brachial artery] O2 Saturation 96 97 96 12/25/16 12/25/16 12/25/16 10:00 11:00 12:00 Temperature 37.7 C H Heart Rate [ 87 76 87 Monitoring electrodes] Respiratory 30 H 20 23 Rate Blood Pressure 120/64 121/66 144/70 H [Left Brachial artery] O2 Saturation 95 96 100 12/25/16 12/25/16 12/25/16 13:00 14:00 15:00 Temperature Heart Rate [ 75 83 77 Monitoring electrodes] Respiratory 22 21 24 Rate Blood Pressure 119/62 131/67 H 138/66 H [Left Brachial artery] O2 Saturation 97 97 97 12/25/16 12/25/16 12/25/16 16:00 17:00 18:00 Temperature 37.9 C H 38.0 C H Heart Rate [ 81 82 81 Monitoring electrodes] Respiratory 22 14 20 Rate Blood Pressure 142/69 H 129/66 124/73 [Left Brachial artery] O2 Saturation 97 97 97 Oxygen O2 Source Room air I&O (Last 24 Hrs): Intake and Output Totals x24h 12/23/16 12/24/16 12/25/16 23:59 23:59 23:59 Intake Total 2053 3245 Output Total 720 2155 Balance 1333 1090 General: Alert HEENT: Atraumatic, Mucous membr. moist/pink Neck: Supple Neuro: Alert Cardiovascular: Regular rate, No murmurs Respiratory: No respiratory distress Abdomen: Soft Extremities: No edema, No tenderness/swelling - Results Results: Laboratory Results WBC 3.3 x10^3/uL (4.8-10.8) L 12/25/16 04:39 RBC 3.74 10^6/uL (4.70-6.10) L 12/25/16 04:39 Hgb 11.8 g/dL (14.0-18.0) L 12/25/16 04:39 Hct 35.1 % (42.0-52.0) L 12/25/16 04:39 MCV 93.8 fL (80.0-94.0) 12/25/16 04:39 MCH 31.4 pg (27.0-31.0) H 12/25/16 04:39 MCHC 33.5 g/dL (32.0-36.0) 12/25/16 04:39 RDW 15.1 % (12.0-15.0) H 12/25/16 04:39 Plt Count 69 10^3/uL (130-450) L 12/25/16 04:39 MPV 7.6 fL (7.4-11.4) 12/25/16 04:39 Neut # 2.6 10^3/uL (1.5-6.6) 12/25/16 04:39 Lymph # 0.4 10^3/uL (1.5-3.5) L 12/25/16 04:39 [place] # 0.2 10^3/uL (0.0-1.0) 12/25/16 04:39 Eos # 0.0 10^3/uL (0.0-0.7) 12/25/16 04:39 Baso # 0.0 10^3/uL (0.0-0.1) 12/25/16 04:39 Absolute Nucleated RBC 0.00 x10^3/uL 12/25/16 04:39 Nucleated RBCs 0.1 /100WBC 12/25/16 04:39 VBG pH 7.273 (7.31-7.41) L 12/25/16 04:39 Ionized Calcium 1.07 mmol/L (1.15-1.33) L 12/25/16 04:39 Sodium 141 mmol/L (135-145) 12/25/16 04:39 Potassium 4.8 mmol/L (3.5-5.0) 12/25/16 04:39 Chloride 112 mmol/L (101-111) H 12/25/16 04:39 Carbon Dioxide 23 mmol/L (21-32) 12/25/16 04:39 Anion Gap 6.0 (6-13) 12/25/16 04:39 BUN 25 mg/dL (6-20) H 12/25/16 04:39 Creatinine 1.7 mg/dL (0.6-1.2) H 12/25/16 04:39 Estimated GFR (MDRD) 41 (>89) L 12/25/16 04:39 Glucose 142 mg/dL (70-100) H 12/25/16 04:39 POC Whole Bld Glucose 168 mg/dL (70 - 100) H 12/25/16 16:47 Glycated Hemoglobin 6.5 % (4.6-6.2) H 12/24/16 12:29 Estim Average Glucose 140 (70-100) H 12/24/16 12:29 Lactic Acid 2.2 mmol/L (0.5-2.2) 12/24/16 06:00 Calcium 7.6 mg/dL (8.5-10.3) L 12/25/16 04:39 Ionized Calcium YES 12/25/16 04:39 Phosphorus 2.2 mg/dL (2.5-4.6) L 12/25/16 04:29 Magnesium 1.6 mg/dL (1.7-2.8) L 12/25/16 04:29 Total Bilirubin 1.2 mg/dL (0.2-1.0) H 12/24/16 06:00 AST 32 IU/L (10-42) 12/24/16 06:00 ALT 34 IU/L (10-60) 12/24/16 06:00 Alkaline Phosphatase 47 IU/L (42-121) 12/24/16 06:00 Total Creatine Kinase 70 IU/L (22-269) 12/24/16 06:00 CK-MB (CK-2) 0.7 ng/mL (0.6-6.3) 12/24/16 06:00 Troponin I 0.09 ng/mL (<0.49) 12/25/16 04:39 Total Protein 6.8 g/dL (6.7-8.2) 12/24/16 06:00 Albumin 2.9 g/dL (3.2-5.5) L 12/25/16 04:39 Globulin 3.0 g/dL (2.1-4.2) 12/24/16 06:00 Albumin/Globulin Ratio 1.3 (1.0-2.2) 12/24/16 06:00 Amylase 74 U/L (28-100) 12/24/16 12:29 Lipase 29 U/L (22-51) 12/24/16 12:29 TSH 1.30 uIU/mL (0.34-5.60) 12/24/16 06:00 Urine Color DARK YELLOW 12/24/16 07:20 Urine Clarity HAZY (CLEAR) 12/24/16 07:20 Urine pH 6.0 PH (5.0-7.5) 12/24/16 07:20 Ur Specific [place] 1.025 (1.002-1.030) 12/24/16 07:20 Urine Protein 30 mg/dL (NEGATIVE) H 12/24/16 07:20 Urine Glucose (UA) NEGATIVE mg/dL (NEGATIVE) 12/24/16 07:20 Urine Ketones NEGATIVE mg/dL (NEGATIVE) 12/24/16 07:20 Urine Occult Blood NEGATIVE (NEGATIVE) 12/24/16 07:20 Urine Nitrite NEGATIVE (NEGATIVE) 12/24/16 07:20 Urine Bilirubin NEGATIVE (NEGATIVE) 12/24/16 07:20 Urine Urobilinogen 0.2 (NORMAL) E.U./dL (NORMAL) 12/24/16 07:20 Ur Leukocyte Esterase NEGATIVE (NEGATIVE) 12/24/16 07:20 Urine RBC None Seen /HPF (0-5) 12/24/16 07:20 Urine WBC 6-10 /HPF (0-3) H 12/24/16 07:20 Ur Epithelial Cells RARE Renal Tubular /HPF (<= Few) 12/24/16 07:20 Ur Squamous Epith Cells NONE SEEN (<= Few) 12/24/16 07:20 Urine Bacteria Moderate /HPF (None Seen) H 12/24/16 07:20 Urine Casts 6-10 Course Granular /LPF 12/24/16 07:20 Ur Microscopic Review INDICATED 12/24/16 07:20 Urine Culture Comments INDICATED 12/24/16 07:20 - Procedures Procedures: Procedures DRAINAGE OF RIGHT VITREOUS WITH DRAIN DEV, PERC APPROACH (07/12/15) EXCISION OF DESCENDING COLON, ENDO, DIAGN (07/28/16) EXCISION OF RECTUM, ENDO, DIAGN (07/28/16) EXCISION OF SIGMOID COLON, ENDO, DIAGN (07/28/16) REPLACEMENT OF LEFT LENS WITH SYNTH SUB, PERC APPROACH (08/23/15) REPLACEMENT OF RIGHT LENS WITH SYNTH SUB, PERC APPROACH (07/12/15) UNILAT THYROID LOBECTOMY (02/20/15)
[2016-12-25] MEDS: ZOLPIDEM 5 MG TABLET PO PRN (20:40)
[2016-12-25] MEDS: INSULIN GLARGINE 300 UNIT/3 ML PEN SUBQ SCH (20:41)
[2016-12-26 04:51] LABS: BASOPHILS % (AUTO) 0.1 %; EOSINOPHILS % (AUTO) 0.8 %; HCT - HEMATOCRIT 32.2 % (42.0-52.0); HGB - HEMOGLOBIN 10.7 g/dL (14.0-18.0); LYMPHOCYTES # (AUTO) 0.6 10^3/uL (1.5-3.5); LYMPHOCYTES % (AUTO) 18.3 %; MEAN CORPUSCULAR HGB CONC 33.4 g/dL (32.0-36.0); MEAN CORPUSCULAR VOLUME 92.9 fL (80.0-94.0); MEAN PLATELET VOLUME 7.5 fL (7.4-11.4); MONOCYTES # (AUTO) 0.3 10^3/uL (0.0-1.0); MONOCYTES % (AUTO) 9.4 %; NEUTROPHILS # (AUTO) 2.3 10^3/uL (1.5-6.6); NEUTROPHILS % (AUTO) 71.4 %; RED BLOOD COUNT 3.46 10^6/uL (4.70-6.10); RED CELL DISTRIBUTION WIDTH 14.5 % (12.0-15.0); UNCORRECTED WHITE BLOOD COUNT 3.2 x10^3/uL; WHITE BLOOD COUNT 3.2 x10^3/uL (4.8-10.8)
[2016-12-26 05:00] LABS: CALCIUM 7.9 mg/dL (8.5-10.3)
[2016-12-26 05:03] LABS: CALCIUM, IONIZED 1.1 mmol/L (1.15-1.33); VBG PH 7.363 (7.31-7.41)
[2016-12-26 05:04] LABS: CALCIUM 7.9 mg/dL (8.5-10.3); CREATININE 1.6 mg/dL (0.6-1.2); MAGNESIUM 1.8 mg/dL (1.7-2.8); PHOSPHORUS 2.2 mg/dL (2.5-4.6); POTASSIUM 4.5 mmol/L (3.5-5.0)
[2016-12-26] MEDS: SODIUM CHLORIDE FLUSH 0.9% 10 ML SYRINGE IVP SCH ×2 (05:11→12:23)
[2016-12-26] MEDS: SODIUM CHLORIDE 0.9% 1,000 ML IV SCH (05:44)
[2016-12-26] MEDS: LEVOTHYROXINE 75 MCG TABLET PO SCH (05:44)
[2016-12-26] MEDS ORDERED: MAGNESIUM SULFATE 2 GRAM 50 ML IV SCH (05:57)
[2016-12-26] MEDS ORDERED: POTASSIUM PHOSPHATE 15 MMOL in SODIUM CHLORIDE 0.9% 250 ML IV SCH (07:00)
[2016-12-26] MEDS: INSULIN ASPART 300 UNIT/3 ML PEN SUBQ SCH ×3 (08:33→17:16)
[2016-12-26] MEDS: ASPIRIN EC 81 MG TABLET PO SCH (08:34)
[2016-12-26] MEDS: PREGABALIN 100 MG CAPSULE PO SCH (08:35)
[2016-12-26 15:58] VITALS: BP 144/85
--- NOTE | 2016-12-26 16:55 | Discharge Plan ---
Discharge Plan Disposition: 01 Home, Self Care Condition: Good Prescriptions: Levofloxacin [Levaquin] 750 mg PO DAILY #3 tablet Activity Restrictions: No Restrictions Shower Restrictions: No Driving Restrictions: No Weight Bearing: Full Weight Additional Instructions or Follow Up instructions: Urology evaluation required as outpatient No Smoking: If you smoke, Please STOP! Call for help.
--- NOTE | 2016-12-26 19:40 | DISCHARGE SUMMARY ---
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 He developed a week of weakness and 1-1/2 days of shaking chills and eventually was brought to the hospital after being found by his lethargic, near syncopal wi th very low blood pressure and shaking chills. He was noted to have a fever of 104, complained of dys uria symptoms for a day and a half and was treated for urinary tract infection associated with urosep sis and mild acute renal failure. PAST MEDICAL HISTORY: Includes diabetes, hypertension, heart murmur. PAST SURGICAL HISTORY: Tonsils and adenoids and cataract surgery. MEDICATIONS AT HOME: Were replaced with 1. Lisinopril. 2. Metformin. 3. Januvia. 4. Tanzeum. 5. . 6. Baby aspirin. 7. Lyrica. 8. Ambien p.r.n. SIGNIFICANT LABS INCLUDED: Positive blood cultures with gram negative rods and positive urine culture growing Citrobacter. EKG showed sinus tachycardia on admission with right bundle branch block and left posterior fascicula r block (no old EKG available for comparison). HOSPITAL COURSE: The patient's low blood pressure was resuscitated with saline infusion. The patient was placed on IV antibiotics using Levaquin IV. His diabetes was covered with insulin sliding scale, as well as Novolog insulin. The patient had fevers for an additional 1-1/2 days, but continued to imp rove clinically. Hematuria began after straight cath in the emergency room and eventually resolved on day 3. The patient's glucoses were under control and the patient was ambulating and improved clinica lly on the day of discharge. New medications include: 1. Levaquin 750 mg p.o. daily for an additional 3 days. Recommendation is for Urology evaluation soon as an outpatient. Thank you for allowing me to participate in the care of this patient. JOB #: [id number] EXT JOB #:[id number]
== END 2016-12-26 18:09 | disposition home or self-care (01) | DRG 872 ==
LOC: EDUNIT# → ED 05:42 → SUPCPDRO 05:42 → ICU 09:12
PROVIDERS: ADMIT Internal Medicine; ATTEND Internal Medicine
DX: A41.9 Sepsis, unspecified organism (principal); C91.40 Hairy cell leukemia not having achieved remission; A41.50 Gram-negative sepsis, unspecified; N39.0 Urinary tract infection, site not specified; N17.9 Acute kidney failure, unspecified; E03.9 Hypothyroidism, unspecified; Z79.82 Long term (current) use of aspirin; E11.9 Type 2 diabetes mellitus without complications; Z79.899 Other long term (current) drug therapy; I11.0 Hypertensive heart disease with heart failure; I50.9 Heart failure, unspecified; Z79.84 Long term (current) use of oral hypoglycemic drugs; R31.9 Hematuria, unspecified
CPT/HCPCS: 36415; 51701; 71010; 80048; 80053; 81001; 81003; 82009; 82040; 82150; 82310; 82330; 82550; 82553; 82803; 82947; 83036; 83605; 83690; 83735; 83930; 84100; 84132; 84443; 84478; 84484; 85025; 87040; 87077; 87086; 87150; 93005; 94640; 96361; 96365; 96375; 99284; 99285

== ENCOUNTER 2016-12-27 11:06 | Outpatient (CLI) | payer MEDICARE, OTHER ==
--- NOTE | 2016-12-27 21:13 | Ultrasound Report ---
EXAM: THYROID ULTRASOUND EXAM DATE: 12/27/2016 11:44 AM. CLINICAL HISTORY: History of follicular adenoma, status post left thyroidectomy 2 years ago. COMPARISON: None. TECHNIQUE: Real time sonographic imaging of the thyroid was performed by the medical communication specialist. Multiple re presentative static images were saved for review. FINDINGS: THYROID GLAND: Right Lobe: 3.4 x 1.0 x 1.6 cm, volume 2.7 cc. Normal background echotexture. Right Lobe Nodules: 0.3 cm simple cyst in the upper pole, 0.3 cm simple cyst in the lower pole. Left Lobe: Status post thyroidectomy. Unremarkable thyroidectomy bed. Isthmus: 0.3 cm AP. Isthmic Nodules: None. LYMPH NODES: No adenopathy demonstrated in the central or lateral compartment. OTHER: None. IMPRESSION: Two 3 mm simple cysts in the right thyroid lobe, which is otherwise unremarkable. Status post left thyroidectomy. Management recommendations are based on 2015 [place] [employer] Management Guidelines for A dult Patients with Thyroid Nodules and Differentiated Thyroid Cancer. [facility] Referring Provider Line: [phone] SITE ID: [id number]
== END 2016-12-27 11:07 | disposition home or self-care (01) ==
LOC: DI 11:06
PROVIDERS: ATTEND Family Medicine
DX: E04.1 Nontoxic single thyroid nodule (principal)
CPT/HCPCS: 76536

== ENCOUNTER 2017-02-26 13:12 | Outpatient (CLI) | payer MEDICARE, OTHER ==
[2017-02-26 19:29] LABS: BASOPHILS % (AUTO) 0.5 %; EOSINOPHILS # (AUTO) 0.1 10^3/uL (0.0-0.7); EOSINOPHILS % (AUTO) 1.6 %; HCT - HEMATOCRIT 39.2 % (42.0-52.0); HGB - HEMOGLOBIN 13.2 g/dL (14.0-18.0); LYMPHOCYTES # (AUTO) 0.8 10^3/uL (1.5-3.5); LYMPHOCYTES % (AUTO) 23.3 %; MEAN CORPUSCULAR HEMOGLOBIN 31.2 pg (27.0-31.0); MEAN CORPUSCULAR HGB CONC 33.6 g/dL (32.0-36.0); MEAN CORPUSCULAR VOLUME 92.9 fL (80.0-94.0); MEAN PLATELET VOLUME 7.9 fL (7.4-11.4); MONOCYTES # (AUTO) 0.2 10^3/uL (0.0-1.0); MONOCYTES % (AUTO) 6.9 %; NEUTROPHILS # (AUTO) 2.4 10^3/uL (1.5-6.6); NEUTROPHILS % (AUTO) 67.7 %; NUCLEATED RED BLOOD CELLS AUTO 0.1 /100WBC; RED BLOOD COUNT 4.22 10^6/uL (4.70-6.10); RED CELL DISTRIBUTION WIDTH 14.9 % (12.0-15.0); UNCORRECTED WHITE BLOOD COUNT 3.5 x10^3/uL; WHITE BLOOD COUNT 3.5 x10^3/uL (4.8-10.8)
[2017-02-26 19:34] LABS: BILIRUBIN,DIRECT 0.1 mg/dL (0.1-0.5); BILIRUBIN,TOTAL 0.8 mg/dL (0.2-1.0); CREATININE 1.5 mg/dL (0.6-1.2); TOTAL PROTEIN 6.5 g/dL (6.7-8.2)
== END 2017-02-26 13:13 ==
LOC: LAB.WCP 13:12
PROVIDERS: ATTEND Podiatrist
DX: B35.1 Tinea unguium (principal); B35.3 Tinea pedis; R41.3 Other amnesia
CPT/HCPCS: 36415; 80076; 82565; 84520; 85025

== ENCOUNTER 2017-05-14 08:00 | Outpatient (CLI) | payer MEDICARE, OTHER ==
[2017-05-14 19:30] LABS: ALBUMIN/GLOBULIN RATIO 1.4 (1.0-2.2); BILIRUBIN,TOTAL 0.6 mg/dL (0.2-1.0); CALCIUM 9.2 mg/dL (8.5-10.3); CREATININE 1.4 mg/dL (0.6-1.2); POTASSIUM 4.9 mmol/L (3.5-5.0); TOTAL PROTEIN 7.1 g/dL (6.7-8.2)
== END 2017-05-14 23:59 ==
LOC: LAB.WCP 08:00
PROVIDERS: ATTEND Family Medicine
DX: I10 Essential (primary) hypertension (principal)
CPT/HCPCS: 36415; 80053

== ENCOUNTER 2017-06-17 08:22 | Outpatient (CLI) | payer MEDICARE, OTHER ==
[2017-06-17 13:24] LABS: HB2 TOTAL 15.1 g/dL; HEMOGLOBIN A1C 0.82 g/dL; HEMOGLOBIN A1C % 7.1 % (4.6-6.2)
== END 2017-06-17 08:23 | disposition home or self-care (01) ==
LOC: LAB.WCP 08:22
PROVIDERS: ATTEND Family Medicine
DX: E11.9 Type 2 diabetes mellitus without complications (principal)
CPT/HCPCS: 36415; 83036

== ENCOUNTER 2017-10-01 15:27 | Outpatient (CLI) | payer MEDICARE, OTHER ==
[2017-10-01 19:48] LABS: CALCIUM 9.3 mg/dL (8.5-10.3); CREATININE 1.5 mg/dL (0.6-1.2)
[2017-10-01 19:52] LABS: HB2 TOTAL 14.8 g/dL; HEMOGLOBIN A1C 0.69 g/dL; HEMOGLOBIN A1C % 6.4 % (4.6-6.2)
== END 2017-10-01 15:28 ==
LOC: LAB.WCP 15:27
PROVIDERS: ATTEND Family Medicine
DX: E11.9 Type 2 diabetes mellitus without complications (principal)
CPT/HCPCS: 36415; 80048; 83036

== ENCOUNTER 2018-01-04 08:00 | Outpatient (CLI) | payer MEDICARE, OTHER ==
[2018-01-04 14:05] LABS: HB2 TOTAL 14.2 g/dL; HEMOGLOBIN A1C 0.66 g/dL; HEMOGLOBIN A1C % 6.4 % (4.6-6.2)
[2018-01-04 14:07] LABS: ALBUMIN 3.8 g/dL (3.2-5.5); ALBUMIN/GLOBULIN RATIO 1.3 (1.0-2.2); ALKALINE PHOSPHATASE 40 IU/L (42-121); ALT ALANINE AMINOTRANSFERASE 24 IU/L (10-60); AST ASPARTATE AMINOTRANSFERASE 21 IU/L (10-42); BUN - BLOOD UREA NITROGEN 27 mg/dL (6-20); CARBON DIOXIDE - CO2 24 mmol/L (21-32); CHLORIDE 109 mmol/L (101-111); CHOL/HDL RATIO 5.1 (<5.0); CHOLESTEROL 142 mg/dL; CREATININE 1.5 mg/dL (0.6-1.2); GFR - MDRD 47 (>89); GLUCOSE 124 mg/dL (70-100); HDL CHOLESTEROL 28 mg/dL; LDL CHOLESTEROL,CALCULATED 71 mg/dL; LDL/HDL RATIO 2.5 (<3.6); SODIUM 137 mmol/L (135-145); TOTAL PROTEIN 6.7 g/dL (6.7-8.2); VLDL CHOLESTEROL 43 mg/dL
== END 2018-01-04 08:01 | disposition home or self-care (01) ==
LOC: LAB.WCP 08:00
PROVIDERS: ATTEND Family Medicine
DX: N28.9 Disorder of kidney and ureter, unspecified (principal); E78.9 Disorder of lipoprotein metabolism, unspecified; I10 Essential (primary) hypertension; E11.9 Type 2 diabetes mellitus without complications
CPT/HCPCS: 36415; 80053; 80061; 82043; 83036; 83721

== ENCOUNTER → 2018-04-05 | Outpatient (CLI) | payer MEDICARE, OTHER ==
[2018-04-05 12:48] LABS: CREATININE 1.6 mg/dL (0.6-1.2)
[2018-04-05 13:01] LABS: HB2 TOTAL 13.6 g/dL; HEMOGLOBIN A1C 0.67 g/dL; HEMOGLOBIN A1C % 6.7 % (4.6-6.2)
== END ==
LOC: LAB.WCP 08:00
PROVIDERS: ATTEND Family Medicine
DX: E11.9 Type 2 diabetes mellitus without complications (principal); N28.9 Disorder of kidney and ureter, unspecified
CPT/HCPCS: 36415; 80048; 83036

== ENCOUNTER 2018-06-10 17:45 | Outpatient (CLI) | payer MEDICARE, OTHER ==
--- NOTE | 2018-06-11 11:34 | Ultrasound Report ---
Reason: CHRONIC KIDNEY DISEASE, STAGE III Procedure Date: 06/10/2018 Accession Number: [id number] / [id number] Procedure: US - Retroperitoneal CPT Code: FULL RESULT: EXAM: RENAL ULTRASOUND EXAM DATE: 06/10/2018 06:12 PM. CLINICAL HISTORY: Chronic kidney disease, stage III. COMPARISON: None. TECHNIQUE: Real-time scanning was performed with static images obtained. FINDINGS: Right Kidney: 10.1 cm. Normal echotexture with no stones, contour-deforming masses, or hydronephrosis. Left Kidney: 11.3 cm. Lower pole simple-appearing cyst up to 2.2 cm. Normal echotexture with no stones, contour-deforming masses, or hydronephrosis. Bladder: Bilateral jets seen. The prevoid bladder volume was 280 cc. The postvoid bladder volume was 77 cc. Other: None. IMPRESSION: No urinary obstruction. [facility]
== END 2018-06-10 17:46 | disposition home or self-care (01) ==
LOC: DI 17:45
PROVIDERS: ATTEND Internal Medicine Nephrology
DX: N18.3 Chronic kidney disease, stage 3 (moderate) (principal)
CPT/HCPCS: 76770

== ENCOUNTER 2018-06-25 08:00 | Outpatient (CLI) | payer MEDICARE, OTHER | END 2018-06-25 23:59 | LOC: LAB.R 08:00 | PROVIDERS: ATTEND Family Medicine | DX: R19.7 Diarrhea, unspecified (principal) | CPT/HCPCS: 81599; 82274; 87045; 87046; 87177; 87209; 87329; 87493; 89055 ==

== ENCOUNTER 2018-07-09 09:05 | Outpatient (CLI) | payer MEDICARE, OTHER ==
[2018-07-09 13:34] LABS: BASOPHILS % (AUTO) 0.5 %; EOSINOPHILS # (AUTO) 0.1 10^3/uL (0.0-0.7); EOSINOPHILS % (AUTO) 2.2 %; HGB - HEMOGLOBIN 12.9 g/dL (14.0-18.0); LYMPHOCYTES # (AUTO) 0.8 10^3/uL (1.5-3.5); LYMPHOCYTES % (AUTO) 22.6 %; MEAN CORPUSCULAR HEMOGLOBIN 31.6 pg (27.0-31.0); MEAN CORPUSCULAR VOLUME 92.9 fL (80.0-94.0); MEAN PLATELET VOLUME 7.7 fL (7.4-11.4); MONOCYTES # (AUTO) 0.3 10^3/uL (0.0-1.0); MONOCYTES % (AUTO) 7.9 %; NEUTROPHILS # (AUTO) 2.5 10^3/uL (1.5-6.6); NEUTROPHILS % (AUTO) 66.8 %; PLT - PLATELET COUNT 183 10^3/uL (130-450); RED BLOOD COUNT 4.09 10^6/uL (4.70-6.10); RED CELL DISTRIBUTION WIDTH 14.2 % (12.0-15.0); WHITE BLOOD COUNT 3.7 x10^3/uL (4.8-10.8)
[2018-07-09 13:46] LABS: ALBUMIN 3.8 g/dL (3.2-5.5); CALCIUM 9.3 mg/dL (8.5-10.3); CREATININE 1.7 mg/dL (0.6-1.2); PHOSPHORUS 3.6 mg/dL (2.5-4.6); URIC ACID 5.9 mg/dL (2.6-7.2)
[2018-07-09 14:34] LABS: HB2 TOTAL 13.5 g/dL; HEMOGLOBIN A1C 0.64 g/dL; HEMOGLOBIN A1C % 6.5 % (4.6-6.2)
[2018-07-09 18:17] LABS: BILIRUBIN,URINE NEGATIVE (NEGATIVE); GLUCOSE, URINE (UA) NEGATIVE (NEGATIVE); KETONES,URINE (UA) NEGATIVE (NEGATIVE); LEUKOCYTE ESTERASE, URINE NEGATIVE (NEGATIVE); NITRITE,URINE NEGATIVE (NEGATIVE); OCCULT BLOOD,URINE NEGATIVE (NEGATIVE); PH,URINE 5.5 PH (5.0-7.5); PROTEIN,URINE NEGATIVE (NEGATIVE); UROBILINOGEN,URINE 0.2 (NORMAL) E.U./dL (NORMAL)
[2018-07-09 18:24] LABS: BACTERIA,URINE None Seen /HPF (None Seen); CLARITY,URINE CLEAR (CLEAR); RBC,URINE None Seen /HPF (0-5); SQUAMOUS EPITHELIAL CELL,UR RARE Squamous (<= Few)
[2018-07-09 18:29] LABS: CREATININE,URINE 134.7 mg/dL; MICROALBUM/CREATININE RATIO,UR 21.5 ug/mg (<30.0); MICROALBUMIN,URINE 2.9 mg/dL (0-300.0)
== END 2018-07-09 09:06 | disposition home or self-care (01) ==
LOC: LAB.WCP 09:05
PROVIDERS: ATTEND Family Medicine
DX: E11.22 Type 2 diabetes mellitus with diabetic chronic kidney disease (principal); N18.3 Chronic kidney disease, stage 3 (moderate)
CPT/HCPCS: 36415; 80048; 80069; 81001; 82043; 82306; 82570; 83036; 83970; 84550; 85025

== ENCOUNTER 2018-07-30 08:32 | Outpatient (CLI) | payer MEDICARE, OTHER ==
[2018-07-30 14:26] LABS: CALCIUM 9.1 mg/dL (8.5-10.3); CREATININE 0.8 mg/dL (0.6-1.2)
== END 2018-07-30 08:33 | disposition home or self-care (01) ==
LOC: LAB.WCP 08:32
PROVIDERS: ATTEND Internal Medicine Nephrology
DX: E87.5 Hyperkalemia (principal)
CPT/HCPCS: 36415; 80048

== ENCOUNTER 2018-09-04 17:48 | Emergency (ER) | payer MEDICARE, OTHER ==
[2018-09-04 17:55] VITALS: BP 158/67
--- NOTE | 2018-09-04 18:14 | ED Physician Documentation ---
PD HPI UPPER EXT INJURY - Stated complaint Stated Complaint: RT ARM PX - Chief complaint Chief Complaint: Trauma Ext - History obtained from History obtained from: Patient - History of Present Illness Location: Right, Shoulder Where injury occurred: Home Timing - onset: How many hours ago (2) Timing - duration: Hours (2) Timing - details: Abrupt onset Pain level max: 7 Pain level now: 4 Improved by: Rest, Immobilization Worsened by: Moving, Palpating Associated symptoms: No: Weakness, Numbness, Tingling, Swelling Contributing factors: No: Anticoagulated Recently seen: Not recently seen - Additonal information Additional information: 68-year-old male presents the emergency department with a right shoulder injury after lifting boxes today. States he has had a posterior rotator cuff tear in the shoulder in the past. Pain starts when he abducts his arm above 90 degrees. Patient took 2 Aleve prior to arrival Review of Systems Constitutional: denies: Fever Musculoskeletal: denies: Neck pain, Back pain Neurologic: denies: Focal weakness, Numbness, Headache PD PAST MEDICAL HISTORY - Past Medical History Past Medical History: Yes Cardiovascular: Congestive heart failure, Hypertension, Murmur Respiratory: Sleep apnea Endocrine/Autoimmune: Type 2 diabetes, HyPOthyroidism GI: None : None HEENT: None Psych: None Musculoskeletal: None Derm: None - Past Surgical History Past Surgical History: Yes General: Colonoscopy HEENT: Cataracts, Tonsil/Adenoidectomy - Present Medications Home Medications: Ambulatory Orders Medication Instructions Recorded Confirmed Levothyroxine Sodium [Synthroid] 75 mcg PO DAILY 10/05/12 08/10/18 Lisinopril 20 mg PO DAILY 10/05/12 08/10/18 Metformin HCl [Metformin 1,000 mg PO BID 10/05/12 08/10/18 Hydrochloride] Simvastatin 40 mg PO DAILY 10/05/12 08/10/18 Zolpidem Tartrate [Ambien] 10 mg PO DAILY PRN 10/05/12 08/10/18 SITagliptin [Januvia] 100 mg PO DAILY 01/02/15 08/10/18 Aspirin [Aspirin EC] 81 mg PO DAILY 02/20/15 08/10/18 Glipizide [Glucotrol Xl] 5 mg PO DAILY 02/20/15 08/10/18 Pregabalin [Lyrica] 100 mg PO BID 02/20/15 08/10/18 Gemfibrozil [Lopid] 600 mg ORAL BID 09/04/18 09/04/18 Insulin Glargine [Lantus Solostar] 48 unit SUBQ QPM 09/04/18 Meloxicam [Mobic] 15 mg PO DAILY PRN #20 tablet 09/04/18 - Allergies Allergies/Adverse Reactions: Allergies Allergy/AdvReac Type Severity Reaction Status Date / Time No Known Drug Allergies Allergy Verified 09/04/18 17:55 - Social History Does the pt smoke?: No Smoking Status: Never smoker Does the pt drink ETOH?: No Does the pt have substance abuse?: No - Immunizations Immunizations are current?: Yes - POLST Patient has POLST: No PD ED PE NORMAL - Vitals Vital signs reviewed: Yes - General General: Alert and oriented X 3, No acute distress - HEENT HEENT: Moist mucous membranes - Neck Neck: Supple, no meningeal sign - Derm Derm: Warm and dry - Extremities Extremities: Other (No pain with passive range of motion of the arm. Full range of motion present with passive range of motion. Pain is only present with active range of motion abduction above 90 degrees. Neurovascular intact including the axillary nerve. No deformity. No bony tenderness.) - Neuro Neuro: Alert and oriented X 3, protocol manager 2-12 intact, No motor deficit, No sensory deficit Results - Vitals Vitals: Vital Signs - 24 hr 09/04/18 17:53 Temperature 36.7 C Heart Rate 78 Respiratory 18 Rate Blood Pressure 158/67 H O2 Saturation 99 Oxygen O2 Source Room air - Rads (name of study) Right shoulder x-ray Radiology: Prelim report reviewed, EMP read contemporaneously, See rad report (Severe osteoarthritis of the right shoulder) PD MEDICAL DECISION MAKING - ED course Complexity details: reviewed results, re-evaluated patient, considered differential, d/w patient ED course: 68-year-old male with a right shoulder injury. Strain versus rotator cuff injury. No acute findings on x-ray. Declines a sling. Will prescribe Mobic for home. We will have him follow-up with his doctor for further care. No evidence of dislocation, fracture. Neurovascular intact. Patient counseled regarding signs and symptoms for which I believe and urgent re-evaluation would be necessary. Patient with good understanding of and agreement to plan and is comfortable going home at this time This document was made in part using voice recognition software. While efforts are made to proofread this document, sound alike and grammatical errors may occur. Departure - Departure Disposition: 01 Home, Self Care Clinical Impression: Strain of right shoulder Qualifiers: Encounter type: initial encounter Qualified Code(s): S46.911A - Strain of unspecified muscle, fascia and tendon at shoulder and upper arm level, right arm, initial encounter Condition: Good Instructions: ED Torn Rotator Cuff, ED Sprain Shoulder Follow-Up: Robb Llamas MD [Provider Admit Priv/Credential] - Within 1 week Prescriptions: Meloxicam [Mobic] 15 mg PO DAILY PRN #20 tablet PRN Reason: pain Comments: This may be a simple shoulder strain versus a rotator cuff injury. You will need a repeat examination with your doctor and possibly orthopedics. You may need physical therapy as well. Return if you worsen
--- NOTE | 2018-09-04 18:34 | XRAY Report ---
Reason: R shoulder pain lifting boxes Procedure Date: 09/04/2018 Accession Number: [id number] / [id number] Procedure: XR - Shoulder 3 View RT CPT Code: FULL RESULT: EXAM: RIGHT SHOULDER RADIOGRAPHY EXAM DATE: 09/04/2018 06:19 PM. CLINICAL HISTORY: R shoulder pain lifting boxes. COMPARISON: None. TECHNIQUE: 3 views. FINDINGS: Bones: No acute fracture or suspicious bone lesion. Joints: Severe osteoarthritis of the glenohumeral joint and acromioclavicular joint. Moderate inferior osteophytes at glenohumeral joint. Soft tissues: The partially imaged lung is unremarkable. IMPRESSION: No acute radiographic abnormalities. Severe glenohumeral joint osteoarthritis. [facility]
== END 2018-09-04 18:48 | disposition home or self-care (01) ==
LOC: ED 17:48
DX: S46.911A Strain of unspecified muscle, fascia and tendon at shoulder and upper arm level, right arm, initial encounter (principal); X50.0XXA Overexertion from strenuous movement or load, initial encounter; Y92.009 Unspecified place in unspecified non-institutional (private) residence as the place of occurrence of the external cause; I11.0 Hypertensive heart disease with heart failure; I50.9 Heart failure, unspecified; E11.9 Type 2 diabetes mellitus without complications; Z79.4 Long term (current) use of insulin; E03.9 Hypothyroidism, unspecified
CPT/HCPCS: 99283

== ENCOUNTER 2019-01-12 08:00 | Outpatient (CLI) | payer MEDICARE, OTHER ==
[2019-01-12 12:35] LABS: ALBUMIN 3.9 g/dL (3.2-5.5); CALCIUM 9.4 mg/dL (8.5-10.3); CREATININE 1.7 mg/dL (0.6-1.2); PHOSPHORUS 3.2 mg/dL (2.5-4.6); URIC ACID 6.4 mg/dL (2.6-7.2)
[2019-01-12 12:40] LABS: CREATININE,URINE 120.4 mg/dL; MICROALBUM/CREATININE RATIO,UR 20.8 ug/mg (<30.0); MICROALBUMIN,URINE 2.5 mg/dL (0-300.0)
== END 2019-01-12 23:59 | disposition home or self-care (01) ==
LOC: LAB.WCP 08:00
PROVIDERS: ATTEND Internal Medicine Nephrology
DX: N18.3 Chronic kidney disease, stage 3 (moderate) (principal)
CPT/HCPCS: 36415; 80069; 82043; 82306; 82570; 84550

== ENCOUNTER 2019-02-09 08:00 | Outpatient (CLI) | payer MEDICARE, OTHER ==
[2019-02-09 12:24] LABS: BASOPHILS % (AUTO) 0.7 %; EOSINOPHILS # (AUTO) 0.1 10^3/uL (0.0-0.7); EOSINOPHILS % (AUTO) 2.1 %; HGB - HEMOGLOBIN 12.7 g/dL (14.0-18.0); LYMPHOCYTES # (AUTO) 0.7 10^3/uL (1.5-3.5); LYMPHOCYTES % (AUTO) 24.5 %; MEAN CORPUSCULAR HEMOGLOBIN 31.8 pg (27.0-31.0); MEAN CORPUSCULAR HGB CONC 33.3 g/dL (32.0-36.0); MEAN CORPUSCULAR VOLUME 95.3 fL (80.0-94.0); MEAN PLATELET VOLUME 9.4 fL (7.4-11.4); MONOCYTES # (AUTO) 0.3 10^3/uL (0.0-1.0); MONOCYTES % (AUTO) 9.8 %; NEUTROPHILS # (AUTO) 1.8 10^3/uL (1.5-6.6); NEUTROPHILS % (AUTO) 62.6 %; PLT - PLATELET COUNT 162 10^3/uL (130-450); RED CELL DISTRIBUTION WIDTH 13.6 % (12.0-15.0); WHITE BLOOD COUNT 2.9 x10^3/uL (4.8-10.8)
[2019-02-09 13:01] LABS: ALBUMIN 3.9 g/dL (3.2-5.5); CREATININE 1.6 mg/dL (0.6-1.2); MAGNESIUM 2.1 mg/dL (1.7-2.8); PHOSPHORUS 3.1 mg/dL (2.5-4.6); URIC ACID 5.9 mg/dL (2.6-7.2)
[2019-02-09 13:02] LABS: CREATININE,URINE 117.5 mg/dL; MICROALBUM/CREATININE RATIO,UR 15.3 ug/mg (<30.0); MICROALBUMIN,URINE 1.8 mg/dL (0-300.0)
[2019-02-09 13:15] LABS: RBC MORPHOLOGY (MULTIPLE) 2+ ANISOCYTOSIS (NORMAL)
== END 2019-02-09 23:59 | disposition home or self-care (01) ==
LOC: LAB.WCP 08:00
PROVIDERS: ATTEND Internal Medicine Nephrology
DX: N18.3 Chronic kidney disease, stage 3 (moderate) (principal); E87.5 Hyperkalemia
CPT/HCPCS: 36415; 80069; 82043; 82306; 82570; 83735; 83970; 84550; 85025

== ENCOUNTER 2019-05-18 08:00 | Outpatient (CLI) | payer MEDICARE, OTHER ==
[2019-05-18 12:53] LABS: CALCIUM 9.3 mg/dL (8.5-10.3); CREATININE 1.9 mg/dL (0.6-1.2)
[2019-05-18 13:08] LABS: HB2 TOTAL 12.8 g/dL; HEMOGLOBIN A1C 0.81 g/dL; HEMOGLOBIN A1C % 7.9 % (4.6-6.2)
[2019-05-18 13:25] LABS: CREATININE,URINE 169.5 mg/dL; MICROALBUM/CREATININE RATIO,UR 16.5 ug/mg (<30.0); MICROALBUMIN,URINE 2.8 mg/dL (0-300.0)
== END 2019-05-18 23:59 | disposition home or self-care (01) ==
LOC: LAB.WCP 08:00
PROVIDERS: ATTEND Family Medicine
DX: E11.9 Type 2 diabetes mellitus without complications (principal); Z12.5 Encounter for screening for malignant neoplasm of prostate
CPT/HCPCS: 36415; 80048; 82043; 82570; 83036; G0103; 84153

== ENCOUNTER 2019-06-09 08:00 | Outpatient (CLI) | payer MEDICARE, OTHER ==
[2019-06-09 12:18] LABS: CALCIUM 9.4 mg/dL (8.5-10.3); CREATININE 1.6 mg/dL (0.6-1.2)
[2019-06-09 12:54] LABS: HEMOGLOBIN A1C 0.75 g/dL; HEMOGLOBIN A1C % 7.4 % (4.6-6.2)
[2019-06-09 18:51] LABS: CREATININE,URINE 112.9 mg/dL; MICROALBUM/CREATININE RATIO,UR 25.7 ug/mg (<30.0); MICROALBUMIN,URINE 2.9 mg/dL (0-300.0)
== END 2019-06-09 23:59 | disposition home or self-care (01) ==
LOC: LAB.N 08:00
PROVIDERS: ATTEND Family Medicine
DX: E11.9 Type 2 diabetes mellitus without complications (principal); Z12.5 Encounter for screening for malignant neoplasm of prostate
CPT/HCPCS: 36415; 80048; 82043; 82570; 83036; G0103; 84153; 84156

== ENCOUNTER 2019-06-23 06:01 | Day surgery (SDC) | payer MEDICARE, OTHER ==
[2019-06-23] MEDS ORDERED: MIDAZOLAM 2 MG/2 ML VIAL IVP ONE (06:02)
[2019-06-23] MEDS ORDERED: fentaNYL 250 MCG/5 ML VIAL IVP ONE (06:02)
[2019-06-23] MEDS ORDERED: LACTATED RINGERS 1,000 ML IV ONE (06:19)
[2019-06-23 09:24] VITALS: BP 110/77
== END 2019-06-23 06:02 | disposition home or self-care (01) ==
LOC: SDS 06:01
PROVIDERS: ATTEND Surgery
PROC: 0DBH8ZZ Excision of Cecum, Via Natural or Artificial Opening Endoscopic (ICD-10-PCS; 2019-06-23)
PROC: 0DBK8ZZ Excision of Ascending Colon, Via Natural or Artificial Opening Endoscopic (ICD-10-PCS; principal; 2019-06-23 08:30)
DX: Z12.11 Encounter for screening for malignant neoplasm of colon (principal); D12.2 Benign neoplasm of ascending colon; D12.0 Benign neoplasm of cecum; K57.30 Diverticulosis of large intestine without perforation or abscess without bleeding; E11.9 Type 2 diabetes mellitus without complications; N28.9 Disorder of kidney and ureter, unspecified; I10 Essential (primary) hypertension; E78.00 Pure hypercholesterolemia, unspecified; G47.30 Sleep apnea, unspecified; C95.90 Leukemia, unspecified not having achieved remission
CPT/HCPCS: 45380; 45385; J3010; J7120

== ENCOUNTER 2019-07-27 08:12 | Outpatient (CLI) | payer MEDICARE, OTHER ==
[2019-07-27 12:26] LABS: CALCIUM 9.2 mg/dL (8.5-10.3); CREATININE 1.8 mg/dL (0.6-1.2)
== END 2019-07-27 23:59 | disposition home or self-care (01) ==
LOC: LAB.WCP 08:12
PROVIDERS: ATTEND Internal Medicine Nephrology
DX: E87.5 Hyperkalemia (principal); N18.3 Chronic kidney disease, stage 3 (moderate)
CPT/HCPCS: 36415; 80048

== ENCOUNTER 2019-10-28 09:31 | Outpatient (CLI) | payer MEDICARE, OTHER ==
[2019-10-28 13:36] LABS: BILIRUBIN,URINE NEGATIVE (NEGATIVE); GLUCOSE, URINE (UA) NEGATIVE (NEGATIVE); KETONES,URINE (UA) NEGATIVE (NEGATIVE); LEUKOCYTE ESTERASE, URINE NEGATIVE (NEGATIVE); NITRITE,URINE NEGATIVE (NEGATIVE); OCCULT BLOOD,URINE NEGATIVE (NEGATIVE); PROTEIN,URINE NEGATIVE (NEGATIVE); UROBILINOGEN,URINE 0.2 (NORMAL) E.U./dL (NORMAL)
[2019-10-28 14:01] LABS: BACTERIA,URINE Few /HPF (None Seen); CLARITY,URINE CLEAR (CLEAR); RBC,URINE 0-5 /HPF (0-5); SQUAMOUS EPITHELIAL CELL,UR RARE Squamous (<= Few)
[2019-10-28 14:05] LABS: CALCIUM 9.2 mg/dL (8.5-10.3); CREATININE 1.6 mg/dL (0.6-1.2)
[2019-10-28 14:15] LABS: CREATININE,URINE 84.5 mg/dL; MICROALBUM/CREATININE RATIO,UR 28.4 ug/mg (<30.0); MICROALBUMIN,URINE 2.4 mg/dL (0-300.0)
== END 2019-10-28 23:59 | disposition home or self-care (01) ==
LOC: LAB.WCP 09:31
PROVIDERS: ATTEND Internal Medicine Nephrology
DX: N18.3 Chronic kidney disease, stage 3 (moderate) (principal)
CPT/HCPCS: 36415; 80048; 81001; 82043; 82570

== ENCOUNTER 2020-03-09 09:25 | Emergency (ER) | payer MEDICARE, OTHER ==
--- NOTE | 2020-03-09 09:51 | ED Physician Documentation ---
PD HPI DYSPNEA - Stated complaint Stated Complaint: SOA - Chief complaint Chief Complaint: Resp - History obtained from History obtained from: Patient, Family - History of Present Illness Timing - onset: How many weeks ago (1) Timing - onset during: Rest Timing - duration: Weeks (1) Timing - details: Gradual onset, Still present Inciting event(s): URI Improved by: Rest Worsened by: Coughing Associated symptoms: Cough, Wheezing. No: Fever, Hemoptysis, Chest pain / discomfort, Palpitations, Diaphoresis, Bilateral edema, Unilateral edema, Anxiety Similar symptoms before: Diagnosis (airway compression with thyroid nodule) Recently seen: Emergency Dept (In [place] one week ago.) Review of Systems Constitutional: denies: Fever, Chills, Myalgias Eyes: denies: Decreased vision Ears: denies: Ear pain Nose: reports: Congestion. denies: Rhinorrhea / runny nose Throat: denies: Sore throat Cardiac: denies: Chest pain / pressure, Palpitations Respiratory: reports: Dyspnea, Cough, Wheezing GI: denies: Abdominal Pain, Nausea, Vomiting : denies: Dysuria, Frequency Skin: denies: Rash Musculoskeletal: reports: Neck pain (fullness). denies: Back pain, Extremity pain Neurologic: denies: Generalized weakness, Focal weakness, Numbness PD PAST MEDICAL HISTORY - Past Medical History Cardiovascular: Congestive heart failure, Hypertension, Murmur Respiratory: Sleep apnea Endocrine/Autoimmune: Type 2 diabetes, HyPOthyroidism GI: None : None HEENT: None Psych: None Musculoskeletal: None Derm: None - Past Surgical History Past Surgical History: Yes General: Colonoscopy HEENT: Cataracts, Tonsil/Adenoidectomy - Present Medications Home Medications: Ambulatory Orders Medication Instructions Recorded Confirmed Levothyroxine Sodium [Synthroid] 75 mcg PO DAILY 10/05/12 08/23/19 Lisinopril 20 mg PO DAILY 10/05/12 08/23/19 Metformin HCl [Metformin 1,000 mg PO BID 10/05/12 08/23/19 Hydrochloride] Simvastatin 40 mg PO DAILY 10/05/12 08/23/19 Zolpidem Tartrate [Ambien] 10 mg PO DAILY PRN 10/05/12 08/23/19 SITagliptin [Januvia] 100 mg PO DAILY 01/02/15 08/23/19 Aspirin [Aspirin EC] 81 mg PO DAILY 02/20/15 08/23/19 Pregabalin [Lyrica] 100 mg PO BID 02/20/15 08/23/19 glipiZIDE [Glucotrol Xl] 5 mg PO DAILY 02/20/15 08/23/19 Insulin Glargine [Lantus Solostar] 48 unit SUBQ QPM 09/04/18 08/23/19 Meloxicam [Mobic] 15 mg PO DAILY PRN #20 tablet 09/04/18 08/23/19 gemfibroziL [Lopid] 600 mg ORAL BID 09/04/18 08/23/19 - Allergies Allergies/Adverse Reactions: Allergies Allergy/AdvReac Type Severity Reaction Status Date / Time No Known Drug Allergies Allergy Verified 08/23/19 10:30 - Social History Does the pt smoke?: No Smoking Status: Never smoker Does the pt drink ETOH?: No Does the pt have substance abuse?: No - Immunizations Immunizations are current?: Yes - POLST Patient has POLST: No PD ED PE NORMAL - Vitals Vital signs reviewed: Yes (hypertensive ) - General General: Alert and oriented X 3, No acute distress, Well developed/nourished - HEENT HEENT: Atraumatic, PERRL, EOMI, Other (There are hearing aids bilaterally and the pharynx is with dry mucous membranes and no evidence of inflammation. The voice is normal ) - Neck Neck: Supple, no meningeal sign, No bony TTP, Other (There is anterior fullness more to the right and this is non-tender. ) - Cardiac Cardiac: RRR, No murmur - Respiratory Respiratory: No respiratory distress, Other (low rumbling transmitted upper airway sounds. 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, No motor deficit, No sensory deficit, Normal speech Eye Opening: Spontaneous Motor: Obeys Commands Verbal: Oriented GCS Score: 15 - Psych Psych: Normal mood, Normal affect Results - Vitals Vitals: Vital Signs - 24 hr 03/09/20 03/09/20 03/09/20 09:28 10:34 11:08 Temperature 37 C 36.6 C 36.3 C L Heart Rate 83 70 83 Respiratory 20 17 16 Rate Blood Pressure 135/75 H 146/74 H 145/70 H O2 Saturation 97 97 97 03/09/20 03/09/20 03/09/20 11:30 12:11 12:35 Temperature 36.3 C L 36.7 C 36.3 C L Heart Rate 81 82 83 Respiratory 16 16 16 Rate Blood Pressure 150/71 H 140/70 H 144/76 H O2 Saturation 97 96 97 03/09/20 03/09/20 03/09/20 13:24 14:13 14:30 Temperature 36.2 C L Heart Rate 75 70 82 Respiratory 14 16 14 Rate Blood Pressure 163/75 H 157/75 H 134/76 H O2 Saturation 97 99 97 03/09/20 03/09/20 03/09/20 15:21 15:52 17:01 Temperature 36.1 C L 36.2 C L 36.7 C Heart Rate 85 84 85 Respiratory 14 16 22 Rate Blood Pressure 152/76 H 162/82 H 150/80 H O2 Saturation 95 16 L 97 Oxygen O2 Source Room air - Labs Labs: Laboratory Tests 03/09/20 03/09/20 03/09/20 10:00 10:00 10:00 WBC 6.7 RBC 4.52 L Hgb 14.1 Hct 41.7 L MCV 92.3 MCH 31.2 H MCHC 33.8 RDW 13.7 Plt Count 225 MPV 10.5 Neut # (Auto) 5.2 Lymph # (Auto) 0.8 L [place] # (Auto) 0.5 Eos # (Auto) 0.1 Baso # (Auto) 0.0 Absolute Nucleated RBC 0.00 Nucleated RBC % 0.0 Sodium 136 Potassium 5.2 H Chloride 102 Carbon Dioxide 22 Anion Gap 12.0 BUN 38 H Creatinine 1.7 H Estimated GFR (MDRD) 40 L Glucose 164 H Lactic Acid 0.9 Calcium 9.4 Total Bilirubin 0.8 AST 19 ALT 22 Alkaline Phosphatase 67 Total Protein 8.1 Albumin 4.0 Globulin 4.1 Albumin/Globulin Ratio 1.0 Lipase 205 H Urine Color Urine Clarity Urine pH Ur Specific [place] Urine Protein Urine Glucose (UA) Urine Ketones Urine Occult Blood Urine Nitrite Urine Bilirubin Urine Urobilinogen Ur Leukocyte Esterase Urine RBC Urine WBC Ur Squamous Epith Cells Urine Bacteria Ur Microscopic Review Urine Culture Comments 03/09/20 10:35 WBC RBC Hgb Hct MCV MCH MCHC RDW Plt Count MPV Neut # (Auto) Lymph # (Auto) [place] # (Auto) Eos # (Auto) Baso # (Auto) Absolute Nucleated RBC Nucleated RBC % Sodium Potassium Chloride Carbon Dioxide Anion Gap BUN Creatinine Estimated GFR (MDRD) Glucose Lactic Acid Calcium Total Bilirubin AST ALT Alkaline Phosphatase Total Protein Albumin Globulin Albumin/Globulin Ratio Lipase Urine Color YELLOW Urine Clarity CLEAR Urine pH 5.5 Ur Specific [place] 1.025 Urine Protein 30 H Urine Glucose (UA) NEGATIVE Urine Ketones NEGATIVE Urine Occult Blood TRACE-INTA Urine Nitrite NEGATIVE Urine Bilirubin NEGATIVE Urine Urobilinogen 0.2 (NORMAL) Ur Leukocyte Esterase NEGATIVE Urine RBC 0-5 Urine WBC 0-3 Ur Squamous Epith Cells RARE Squamous Urine Bacteria Rare Ur Microscopic Review INDICATED Urine Culture Comments NOT INDICATED - Rads (name of study) CT soft tissue neck Radiology: Prelim report reviewed (Impression: There is a 2.7 cm mass seen along the posterior aspect of the pharynx, with associated prominent narrowing of the airway. Please correlate with known patient history. If not already recently done, further evaluation via laryngoscopy is recommended.), Final report received (Bony changes are seen, which is most compatible with diffuse idiopathic skeletal hyperostosis (DISH). The anterior osteophytes contribute to further airway narrowing. Status post thyroidectomy. 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 He is administered IV decadron in the ED with improvement in air movement. Dr. Tony Herrmann E[facility] [place] is consulted in the case and recommends tertiary referral. The transfer center is consulted and 1st calls us back at 1345. at 1550 the ENT will be headed to a facility to view images. Dr. Hurd kindly accepts the patient in transfer to the [facility] ED for evaluation. The patient here has improvement after administration of dexamethasone and appears to have a stable airway for transport. He has had similar size mass one week ago and he has had progression of symptoms and had a rough night last night with roncherous breathing and drooling. He is able to swallow his secretions has not had a fever and has not been tested for COVID Departure - Departure Disposition: 02 Transfer Acute Care Hosp Clinical Impression: Supraglottic mass Condition: Serious
[2020-03-09] MEDS ORDERED: DEXAMETHASONE 10 MG/ML VIAL IVP STA (10:00)
[2020-03-09 10:10] LABS: BASOPHILS % (AUTO) 0.3 %; EOSINOPHILS # (AUTO) 0.1 10^3/uL (0.0-0.7); EOSINOPHILS % (AUTO) 1.4 %; HGB - HEMOGLOBIN 14.1 g/dL (14.0-18.0); LYMPHOCYTES # (AUTO) 0.8 10^3/uL (1.5-3.5); LYMPHOCYTES % (AUTO) 12.5 %; MEAN CORPUSCULAR HEMOGLOBIN 31.2 pg (27.0-31.0); MEAN CORPUSCULAR HGB CONC 33.8 g/dL (32.0-36.0); MEAN CORPUSCULAR VOLUME 92.3 fL (80.0-94.0); MEAN PLATELET VOLUME 10.5 fL (7.4-11.4); MONOCYTES # (AUTO) 0.5 10^3/uL (0.0-1.0); MONOCYTES % (AUTO) 7.7 %; NEUTROPHILS # (AUTO) 5.2 10^3/uL (1.5-6.6); NEUTROPHILS % (AUTO) 77.8 %; PLT - PLATELET COUNT 225 10^3/uL (130-450); RED BLOOD COUNT 4.52 10^6/uL (4.70-6.10); RED CELL DISTRIBUTION WIDTH 13.7 % (12.0-15.0); WHITE BLOOD COUNT 6.7 x10^3/uL (4.8-10.8)
[2020-03-09 10:26] LABS: BILIRUBIN,TOTAL 0.8 mg/dL (0.2-1.0); CALCIUM 9.4 mg/dL (8.5-10.3); CREATININE 1.7 mg/dL (0.6-1.2); TOTAL PROTEIN 8.1 g/dL (6.7-8.2)
--- NOTE | 2020-03-09 10:40 | XRAY Report ---
PROCEDURE: Chest 1 View X-Ray INDICATIONS: chest pain TECHNIQUE: One view of the chest was acquired. COMPARISON: 12/24/2016 FINDINGS: Surgical changes and devices: None. Lungs and pleura: No pleural effusions or pneumothorax. Lungs are clear. Mediastinum: Mediastinal contours appear normal. Heart size is normal. Bones and chest wall: No suspicious bony lesions. Overlying soft tissues appear unremarkable. IMPRESSION: No acute cardiopulmonary pathology. Reviewed by: Christiano Singh MD on 03/09/2020 10:39 AM PDT Approved by: Christiano iSngh MD on 03/09/2020 10:39 AM PDT Station ID: [id number]
[2020-03-09 10:50] LABS: BILIRUBIN,URINE NEGATIVE (NEGATIVE); GLUCOSE, URINE (UA) NEGATIVE (NEGATIVE); KETONES,URINE (UA) NEGATIVE (NEGATIVE); LEUKOCYTE ESTERASE, URINE NEGATIVE (NEGATIVE); NITRITE,URINE NEGATIVE (NEGATIVE); OCCULT BLOOD,URINE TRACE-INTA (NEGATIVE); PH,URINE 5.5 PH (5.0-7.5); PROTEIN,URINE 30 mg/dL (NEGATIVE); UROBILINOGEN,URINE 0.2 (NORMAL) E.U./dL (NORMAL)
[2020-03-09 10:52] LABS: CLARITY,URINE CLEAR (CLEAR)
[2020-03-09 11:01] LABS: BACTERIA,URINE Rare /HPF (None Seen); RBC,URINE 0-5 /HPF (0-5); SQUAMOUS EPITHELIAL CELL,UR RARE Squamous (<= Few)
[2020-03-09] MEDS ORDERED: IOVERSOL 320 100 ML VIAL IVP ONE ×2 (11:16→11:54)
--- NOTE | 2020-03-09 11:49 | CT Report ---
PROCEDURE: SOFT TISSUE NECK W INDICATIONS: thyroid mass compressing airway CONTRAST: IV CONTRAST: Optiray 320 ml: 80 PO CONTRAST: *NO PO CONTRAST TECHNIQUE: After the administration of intravenous contrast, 3.0 mm axial sections acquired from the sella to th e aortic arch. Additional oblique axial 3.0 mm sections acquired through the pharynx. 3 mm thick co rodney reformats were generated. For radiation dose reduction, the following was used: automated exp osure control, adjustment of mA and/or kV according to patient size. COMPARISON: Correlation is made with prior neck ultrasound, 11/19/2019 FINDINGS: Image quality: Excellent. Lymph nodes: No enlarged lymph nodes seen throughout the neck. Vessels: Visualized vasculature appears patent. Neck spaces: At the level of the pharynx, there is a heterogeneous mass seen posteriorly, which is p robably defined and measures approximately 2.4 x 1.9 cm in greatest axial dimension, with a critical extent of 2.7 cm, as on series 6 image 61. There is prominent narrowing of the airway seen at the lev el of the base of the epiglottis, as on series 3 image 93. The oropharynx and the nasopharynx demonstrate no mucosal lesions. The vocal cords, false vocal cord s, pyriform sinuses, epiglottis, vallecula, and tongue base all appear normal. Extramucosal spaces a ppear unremarkable. Glands: In this patient with this given history, scrutiny is given to the thyroid. The left thyroid has been resected. The right thyroid demonstrates normal size. The small nodule seen on the recent pr ior ultrasound is not seen on the current study. The parotid and submandibular glands appear normal. Miscellaneous: Visualized brain and orbits appear normal. Lung apices appear clear. Superficial so ft tissues appear normal. Bones: No suspicious bony lesions. Visualized sinuses and mastoids appear unremarkable. Cervical s pine degenerative changes are seen, with prominent bridging anterior osteophytes and posterior osteop hytes. The disc spaces are relatively well-preserved. The anterior osteophytes present lead to narrow ing of the airway. IMPRESSION: There is a 2.7 cm mass seen along the posterior aspect of the pharynx, with associated prominent narr owing of the airway. Please could relate with known patient history. If not already recently done, fu rther evaluation via laryngoscopy is recommended. Bony changes are seen, which are most compatible with diffuse idiopathic skeletal hyperostosis (DISH) . The anterior osteophytes contribute to further airway narrowing. Status post left thyroidectomy. The right thyroid lobe is not enlarged. Reviewed by: Finn Glez MD on 03/09/2020 10:48 AM CHOLO Approved by: Finn Glez MD on 03/09/2020 10:48 AM CHOLO Station ID: [id number]
[2020-03-09 17:45] VITALS: BP 143/83
== END 2020-03-09 17:59 | disposition short-term general hospital (02) ==
LOC: ED 09:25
DX: J39.2 Other diseases of pharynx (principal); I10 Essential (primary) hypertension; E11.9 Type 2 diabetes mellitus without complications; Z79.4 Long term (current) use of insulin
CPT/HCPCS: 36415; 70491; 71045; 80053; 81001; 83605; 83690; 85025; 87040; 87077; 87181; 96374; 99285; Q9967; 81003; 87086

== ENCOUNTER 2020-03-09 18:01 | Outpatient (CLI) | payer MEDICARE, OTHER | END 2020-03-09 18:02 | disposition short-term general hospital (02) | LOC: EMS 18:01 | PROVIDERS: ATTEND Surgery | DX: J98.8 Other specified respiratory disorders (principal); R22.1 Localized swelling, mass and lump, neck | CPT/HCPCS: A0425; A0428 ==

== ENCOUNTER 2020-03-16 08:00 | Outpatient (CLI) | payer MEDICARE, OTHER ==
[2020-03-16 12:14] LABS: ALBUMIN 3.6 g/dL (3.2-5.5); BILIRUBIN,TOTAL 0.8 mg/dL (0.2-1.0); CALCIUM 9.1 mg/dL (8.5-10.3); CREATININE 1.6 mg/dL (0.6-1.2); TOTAL PROTEIN 7.1 g/dL (6.7-8.2)
== END 2020-03-16 23:59 | disposition home or self-care (01) ==
LOC: LAB.WCP 08:00
PROVIDERS: ATTEND Family Medicine
DX: I10 Essential (primary) hypertension (principal)
CPT/HCPCS: 36415; 80053

== ENCOUNTER 2020-03-21 08:54 | Outpatient (CLI) | payer MEDICARE, OTHER ==
[2020-03-21 12:09] LABS: ALBUMIN 3.7 g/dL (3.2-5.5); ALBUMIN/GLOBULIN RATIO 1.1 (1.0-2.2); BILIRUBIN,TOTAL 0.8 mg/dL (0.2-1.0); CALCIUM 9.5 mg/dL (8.5-10.3); CREATININE 1.8 mg/dL (0.6-1.2); TOTAL PROTEIN 7.1 g/dL (6.7-8.2)
== END 2020-03-21 23:59 | disposition home or self-care (01) ==
LOC: LAB.WCP 08:54
PROVIDERS: ATTEND Family Medicine
DX: I10 Essential (primary) hypertension (principal)
CPT/HCPCS: 36415; 80053

== ENCOUNTER 2020-03-26 08:50 | Outpatient (CLI) | payer MEDICARE, OTHER ==
[2020-03-26 11:58] LABS: BILIRUBIN,URINE NEGATIVE (NEGATIVE); GLUCOSE, URINE (UA) NEGATIVE (NEGATIVE); KETONES,URINE (UA) NEGATIVE (NEGATIVE); LEUKOCYTE ESTERASE, URINE NEGATIVE (NEGATIVE); NITRITE,URINE NEGATIVE (NEGATIVE); OCCULT BLOOD,URINE NEGATIVE (NEGATIVE); PH,URINE 5.5 PH (5.0-7.5); PROTEIN,URINE NEGATIVE (NEGATIVE); UROBILINOGEN,URINE 0.2 (NORMAL) E.U./dL (NORMAL)
[2020-03-26 12:13] LABS: CLARITY,URINE CLEAR (CLEAR)
[2020-03-26 12:20] LABS: BACTERIA,URINE Rare /HPF (None Seen); RBC,URINE None Seen /HPF (0-5); SQUAMOUS EPITHELIAL CELL,UR RARE Squamous (<= Few)
[2020-03-26 12:29] LABS: CALCIUM 9.1 mg/dL (8.5-10.3); CREATININE 1.7 mg/dL (0.6-1.2); MAGNESIUM 2.1 mg/dL (1.7-2.8); URIC ACID 6.7 mg/dL (2.6-7.2)
[2020-03-26 12:50] LABS: CREATININE,URINE 125.8 mg/dL; MICROALBUM/CREATININE RATIO,UR 22.3 ug/mg (<30.0); MICROALBUMIN,URINE 2.8 mg/dL (0-300.0)
== END 2020-03-26 23:59 | disposition home or self-care (01) ==
LOC: LAB.WCP 08:50
PROVIDERS: ATTEND Internal Medicine Nephrology
DX: N18.32 Chronic kidney disease, stage 3b (principal)
CPT/HCPCS: 36415; 80048; 81001; 82043; 82306; 82570; 83735; 83970; 84550

== ENCOUNTER 2020-05-17 08:00 | Outpatient (CLI) | payer MEDICARE, OTHER ==
[2020-05-17 12:46] LABS: CALCIUM 9.5 mg/dL (8.5-10.3); CREATININE 1.8 mg/dL (0.6-1.2)
== END 2020-05-17 23:59 | disposition home or self-care (01) ==
LOC: LAB.WCP 08:00
PROVIDERS: ATTEND Internal Medicine Nephrology
DX: E87.5 Hyperkalemia (principal)
CPT/HCPCS: 36415; 80048

== ENCOUNTER 2020-06-20 11:42 | Outpatient (CLI) | payer MEDICARE, OTHER ==
[2020-06-20] MEDS ORDERED: IOVERSOL 320 100 ML VIAL IVP ONE ×2 (12:22→15:17)
--- NOTE | 2020-06-20 14:34 | CT Report ---
PROCEDURE: SOFT TISSUE NECK W INDICATIONS: DYSPHAGIA CONTRAST: IV CONTRAST: Optiray 320 ml: 100 PO CONTRAST: *NO PO CONTRAST TECHNIQUE: After the administration of intravenous contrast, 3.0 mm axial sections acquired from the sella to th e aortic arch. Additional oblique axial 3.0 mm sections acquired through the pharynx. 3 mm thick co rodney reformats were generated. For radiation dose reduction, the following was used: automated exp osure control, adjustment of mA and/or kV according to patient size. COMPARISON: CT soft tissue neck 03/09/2020 FINDINGS: Image quality: Excellent. Lymph nodes: No enlarged lymph nodes seen throughout the neck. Vessels: Visualized vasculature appears patent. Neck spaces: The oropharynx, nasopharynx, and pharynx demonstrate no mucosal lesions. There is an a symmetric appearance within the right puriform sinus. There is no aeration as as is present on the le ft side. Glands: The parotid and submandibular glands appear normal. The thyroid is normal in size. Miscellaneous: Visualized brain and orbits appear normal. Lung apices appear clear. Superficial so ft tissues appear normal. Bones: No suspicious bony lesions. Visualized sinuses and mastoids appear unremarkable. There are significant multilevel anterior osteophytes throughout the cervical spine. They are prominent and are in direct approximation to the posterior aspect of the esophagus as well as trachea. Multilevel post erior disc bulges and disc osteophyte complexes are present throughout the cervical spine causing sig nificant multilevel spinal stenosis. IMPRESSION: 1. Asymmetric appearance of the right puriform sinus demonstrating lack of aeration. While this could be secondary to vocal cord movement, mass lesion in this region cannot be excluded. Direct visualiza tion by ENT is recommended. Reviewed by: Teetee August MD on 06/20/2020 2:33 PM PST Approved by: Teetee August MD on 06/20/2020 2:33 PM PST Station ID: [id number]
== END 2020-06-20 11:43 | disposition home or self-care (01) ==
LOC: LAB 11:42 → DI 11:43
PROVIDERS: ATTEND Otolaryngology
DX: R93.89 Abnormal findings on diagnostic imaging of other specified body structures (principal)
CPT/HCPCS: 70491; Q9967

== ENCOUNTER 2020-06-20 11:49 | Outpatient (CLI) | payer MEDICARE, OTHER ==
[2020-06-20 12:17] LABS: CREATININE 1.9 mg/dL (0.6-1.2)
== END 2020-06-20 11:50 | disposition home or self-care (01) ==
LOC: LAB 11:49
PROVIDERS: ATTEND Otolaryngology
DX: R13.12 Dysphagia, oropharyngeal phase (principal); J38.3 Other diseases of vocal cords
CPT/HCPCS: 36415; 82565

== ENCOUNTER 2020-07-10 10:03 | Outpatient (CLI) | payer MEDICARE, OTHER ==
[2020-07-10 12:31] LABS: BILIRUBIN,URINE NEGATIVE (NEGATIVE); GLUCOSE, URINE (UA) NEGATIVE (NEGATIVE); KETONES,URINE (UA) NEGATIVE (NEGATIVE); LEUKOCYTE ESTERASE, URINE NEGATIVE (NEGATIVE); NITRITE,URINE NEGATIVE (NEGATIVE); OCCULT BLOOD,URINE NEGATIVE (NEGATIVE); PROTEIN,URINE NEGATIVE (NEGATIVE); UROBILINOGEN,URINE 0.2 (NORMAL) E.U./dL (NORMAL)
[2020-07-10 12:40] LABS: BACTERIA,URINE None Seen /HPF (None Seen); CLARITY,URINE CLEAR (CLEAR); RBC,URINE 0-5 /HPF (0-5); SQUAMOUS EPITHELIAL CELL,UR RARE Squamous (<= Few)
[2020-07-10 12:44] LABS: CREATININE,URINE 111.5 mg/dL; MICROALBUM/CREATININE RATIO,UR 16.1 ug/mg (<30.0); MICROALBUMIN,URINE 1.8 mg/dL (0-300.0)
[2020-07-10 13:02] LABS: BASOPHILS % (AUTO) 0.5 %; EOSINOPHILS # (AUTO) 0.1 10^3/uL (0.0-0.7); EOSINOPHILS % (AUTO) 1.9 %; LYMPHOCYTES # (AUTO) 0.8 10^3/uL (1.5-3.5); LYMPHOCYTES % (AUTO) 20.2 %; MEAN CORPUSCULAR HEMOGLOBIN 31.3 pg (27.0-31.0); MEAN CORPUSCULAR HGB CONC 33.2 g/dL (32.0-36.0); MEAN CORPUSCULAR VOLUME 94.5 fL (80.0-94.0); MEAN PLATELET VOLUME 9.5 fL (7.4-11.4); MONOCYTES # (AUTO) 0.3 10^3/uL (0.0-1.0); MONOCYTES % (AUTO) 6.6 %; NEUTROPHILS # (AUTO) 2.7 10^3/uL (1.5-6.6); NEUTROPHILS % (AUTO) 70.5 %; PLT - PLATELET COUNT 201 10^3/uL (130-450); RED BLOOD COUNT 4.15 10^6/uL (4.70-6.10); RED CELL DISTRIBUTION WIDTH 12.8 % (12.0-15.0); WHITE BLOOD COUNT 3.8 x10^3/uL (4.8-10.8)
[2020-07-10 13:31] LABS: CALCIUM 9.3 mg/dL (8.5-10.3); CREATININE 0.7 mg/dL (0.6-1.2); PHOSPHORUS 3.6 mg/dL (2.5-4.6); URIC ACID 6.9 mg/dL (2.6-7.2)
== END 2020-07-10 10:04 | disposition home or self-care (01) ==
LOC: LAB.N 10:03
PROVIDERS: ATTEND Internal Medicine Nephrology
DX: N18.32 Chronic kidney disease, stage 3b (principal)
CPT/HCPCS: 36415; 80048; 81001; 82043; 82306; 82570; 84100; 84550; 85025

== ENCOUNTER 2020-07-16 08:00 | Outpatient (CLI) | payer MEDICARE, OTHER ==
[2020-07-16 18:37] LABS: CALCIUM 9.2 mg/dL (8.5-10.3); CREATININE 2.1 mg/dL (0.6-1.2)
== END 2020-07-16 23:59 | disposition home or self-care (01) ==
LOC: LAB.WCP 08:00
PROVIDERS: ATTEND Internal Medicine Nephrology
DX: E87.5 Hyperkalemia (principal)
CPT/HCPCS: 36415; 80048

== ENCOUNTER 2020-07-16 20:18 | Emergency (ER) | payer MEDICARE, OTHER ==
[2020-07-16 20:38] LABS: BILIRUBIN,URINE NEGATIVE (NEGATIVE); GLUCOSE, URINE (UA) NEGATIVE (NEGATIVE); KETONES,URINE (UA) NEGATIVE (NEGATIVE); LEUKOCYTE ESTERASE, URINE NEGATIVE (NEGATIVE); NITRITE,URINE NEGATIVE (NEGATIVE); OCCULT BLOOD,URINE NEGATIVE (NEGATIVE); PROTEIN,URINE NEGATIVE (NEGATIVE); UROBILINOGEN,URINE 0.2 (NORMAL) E.U./dL (NORMAL)
[2020-07-16 20:40] LABS: CLARITY,URINE CLEAR (CLEAR)
[2020-07-16 20:44] LABS: BASOPHILS % (AUTO) 0.8 %; EOSINOPHILS # (AUTO) 0.1 10^3/uL (0.0-0.7); EOSINOPHILS % (AUTO) 2.1 %; HGB - HEMOGLOBIN 13.2 g/dL (14.0-18.0); LYMPHOCYTES # (AUTO) 1.2 10^3/uL (1.5-3.5); LYMPHOCYTES % (AUTO) 30.4 %; MEAN CORPUSCULAR HEMOGLOBIN 31.4 pg (27.0-31.0); MEAN CORPUSCULAR HGB CONC 33.6 g/dL (32.0-36.0); MEAN CORPUSCULAR VOLUME 93.3 fL (80.0-94.0); MEAN PLATELET VOLUME 8.9 fL (7.4-11.4); MONOCYTES # (AUTO) 0.3 10^3/uL (0.0-1.0); MONOCYTES % (AUTO) 7.3 %; NEUTROPHILS # (AUTO) 2.3 10^3/uL (1.5-6.6); NEUTROPHILS % (AUTO) 59.1 %; PLT - PLATELET COUNT 186 10^3/uL (130-450); RED BLOOD COUNT 4.21 10^6/uL (4.70-6.10); RED CELL DISTRIBUTION WIDTH 12.9 % (12.0-15.0); WHITE BLOOD COUNT 3.8 x10^3/uL (4.8-10.8)
[2020-07-16 20:58] LABS: ALBUMIN 4.1 g/dL (3.2-5.5); ALBUMIN/GLOBULIN RATIO 1.1 (1.0-2.2); BILIRUBIN,TOTAL 0.6 mg/dL (0.2-1.0); CALCIUM 9.6 mg/dL (8.5-10.3); MAGNESIUM 2.2 mg/dL (1.7-2.8); TOTAL PROTEIN 7.7 g/dL (6.7-8.2)
--- NOTE | 2020-07-16 21:25 | ED Physician Documentation ---
History of Present Illness - Stated complaint Stated Complaint: HIGH POTASSIUM - Chief complaint Chief Complaint: Abd Pain - History obtained from History obtained from: Patient - History of Present Illness Timing: Today Pain level max: 0 Pain level now: 0 - Additonal information Additional information: 70-year-old male presents to the emergency department with an outpatient lab draw today that revealed an elevated potassium of 6.1. Sent here to have his lab rechecked. He is asymptomatic. Has chronic kidney disease, not on dialysis. Nothing makes it better or worse Review of Systems Constitutional: denies: Fever, Chills Respiratory: denies: Cough GI: denies: Vomiting PD PAST MEDICAL HISTORY - Past Medical History Cardiovascular: Congestive heart failure, Hypertension, Murmur Respiratory: Sleep apnea Endocrine/Autoimmune: Type 2 diabetes, HyPOthyroidism GI: None : None HEENT: None Psych: None Musculoskeletal: None Derm: None - Past Surgical History Past Surgical History: Yes General: Colonoscopy HEENT: Cataracts, Tonsil/Adenoidectomy - Present Medications Home Medications: Ambulatory Orders Medication Instructions Recorded Confirmed Levothyroxine Sodium [Synthroid] 75 mcg PO DAILY 10/05/12 08/23/19 Lisinopril 20 mg PO DAILY 10/05/12 08/23/19 Metformin HCl [Metformin 1,000 mg PO BID 10/05/12 08/23/19 Hydrochloride] Simvastatin 40 mg PO DAILY 10/05/12 08/23/19 Zolpidem Tartrate [Ambien] 10 mg PO DAILY PRN 10/05/12 08/23/19 SITagliptin [Januvia] 100 mg PO DAILY 01/02/15 08/23/19 Aspirin [Aspirin EC] 81 mg PO DAILY 02/20/15 08/23/19 Pregabalin [Lyrica] 100 mg PO BID 02/20/15 08/23/19 glipiZIDE [Glucotrol Xl] 5 mg PO DAILY 02/20/15 08/23/19 Insulin Glargine [Lantus Solostar] 48 unit SUBQ QPM 09/04/18 08/23/19 Meloxicam [Mobic] 15 mg PO DAILY PRN #20 tablet 09/04/18 08/23/19 gemfibroziL [Lopid] 600 mg ORAL BID 09/04/18 08/23/19 - Allergies Allergies/Adverse Reactions: Allergies Allergy/AdvReac Type Severity Reaction Status Date / Time No Known Drug Allergies Allergy Verified 08/23/19 10:30 - Social History Does the pt smoke?: No Smoking Status: Never smoker Does the pt drink ETOH?: No Does the pt have substance abuse?: No - Immunizations Immunizations are current?: Yes - POLST Patient has POLST: No PD ED PE NORMAL - Vitals Vital signs reviewed: Yes - General General: Alert and oriented X 3, No acute distress - HEENT HEENT: Moist mucous membranes - Derm Derm: Warm and dry - Neuro Neuro: Alert and oriented X 3 Results - Vitals Vitals: Vital Signs - 24 hr 07/16/20 07/16/20 20:26 21:43 Temperature 36.7 C 36.4 C L Heart Rate 77 85 Respiratory 19 18 Rate Blood Pressure 171/67 H 150/66 H O2 Saturation 100 100 Oxygen O2 Source Room air - Labs Labs: Laboratory Tests 07/16/20 07/16/20 07/16/20 20:33 20:40 20:40 WBC 3.8 L RBC 4.21 L Hgb 13.2 L Hct 39.3 L MCV 93.3 MCH 31.4 H MCHC 33.6 RDW 12.9 Plt Count 186 MPV 8.9 Neut # (Auto) 2.3 Lymph # (Auto) 1.2 L [place] # (Auto) 0.3 Eos # (Auto) 0.1 Baso # (Auto) 0.0 Absolute Nucleated RBC 0.00 Nucleated RBC % 0.0 Sodium 140 Potassium 4.9 Chloride 104 Carbon Dioxide 23 Anion Gap 13.0 BUN 51 H Creatinine 2.0 H Estimated GFR (MDRD) 33 L Glucose 181 H Calcium 9.6 Magnesium 2.2 Total Bilirubin 0.6 AST 19 ALT 21 Alkaline Phosphatase 58 Total Protein 7.7 Albumin 4.1 Globulin 3.6 Albumin/Globulin Ratio 1.1 Lipase 63 H Urine Color YELLOW Urine Clarity CLEAR Urine pH 6.0 Ur Specific [place] 1.020 Urine Protein NEGATIVE Urine Glucose (UA) NEGATIVE Urine Ketones NEGATIVE Urine Occult Blood NEGATIVE Urine Nitrite NEGATIVE Urine Bilirubin NEGATIVE Urine Urobilinogen 0.2 (NORMAL) Ur Leukocyte Esterase NEGATIVE Ur Microscopic Review NOT INDICATED Urine Culture Comments NOT INDICATED PD MEDICAL DECISION MAKING - ED course Complexity details: considered differential, d/w patient ED course: Potassium is normal on repeat lab draw. Patient asymptomatic. No emergency medical condition at this time. Patient counseled regarding signs and symptoms for which I believe and urgent re-evaluation would be necessary. Patient with good understanding of and agreement to plan and is comfortable going home at this time This document was made in part using voice recognition software. While efforts are made to proofread this document, sound alike and grammatical errors may occur. Departure - Departure Disposition: 01 Home, Self Care Clinical Impression: Abnormal laboratory test Condition: Good Instructions: ED Screening Exam Medical Nonurgent Follow-Up: Kp Torre MD [Primary Care Provider] - As Needed Comments: Your potassium is normal on recheck. You can follow-up with your doctor as scheduled for further care. Discharge Date/Time: 07/16/20 21:45
[2020-07-16 21:44] VITALS: BP 150/66
== END 2020-07-16 21:45 | disposition home or self-care (01) ==
LOC: ED 20:18
DX: E87.5 Hyperkalemia (principal); I12.9 Hypertensive chronic kidney disease with stage 1 through stage 4 chronic kidney disease, or unspecified chronic kidney disease; E11.22 Type 2 diabetes mellitus with diabetic chronic kidney disease; N18.9 Chronic kidney disease, unspecified; Z79.4 Long term (current) use of insulin; Z79.82 Long term (current) use of aspirin
CPT/HCPCS: 36415; 80053; 81001; 81003; 83690; 83735; 85025; 87086; 99283

== ENCOUNTER 2020-09-12 12:42 | Outpatient (CLI) | payer MEDICARE, OTHER ==
--- NOTE | 2020-09-13 17:02 | Ultrasound Report ---
PROCEDURE: Head or Neck Soft Tissue INDICATIONS: THYROID NODULE TECHNIQUE: Real-time scanning was performed of the thyroid gland, with image documentation. COMPARISON: Thyroid ultrasound 12/27/2016, 01/01/2015, 11/19/2019 FINDINGS: Right: Thyroid lobe measures 4.0 x 1.7 x 1.7 cm, and is homogeneous in echotexture. Previous focus of nodular like echogenicity identified on prior exam is not seen on current study. Left: Removed. Isthmus: 2 mm thick. IMPRESSION: 1. Previous focus of echogenicity is not visualized. While it may have resolved, other etiologies s uch as artifact or perhaps extrathyroidal focus cannot be excluded. Reviewed by: Teetee August MD on 09/13/2020 5:01 PM PDT Approved by: Teetee August MD on 09/13/2020 5:01 PM PDT Station ID: [id number]
== END 2020-09-12 12:43 | disposition home or self-care (01) ==
LOC: DI 12:42
PROVIDERS: ATTEND Internal Medicine
DX: E04.1 Nontoxic single thyroid nodule (principal)

== ENCOUNTER → 2020-11-20 | Outpatient (CLI) | payer MEDICARE, OTHER ==
[2020-11-20 11:55] LABS: CALCIUM 9.2 mg/dL (8.5-10.3); CREATININE 1.8 mg/dL (0.6-1.2); PHOSPHORUS 3.6 mg/dL (2.5-4.6); POTASSIUM 4.6 mmol/L (3.5-5.0); URIC ACID 7.4 mg/dL (2.6-7.2)
[2020-11-20 11:58] LABS: BILIRUBIN,URINE NEGATIVE (NEGATIVE); GLUCOSE, URINE (UA) NEGATIVE (NEGATIVE); KETONES,URINE (UA) NEGATIVE (NEGATIVE); LEUKOCYTE ESTERASE, URINE NEGATIVE (NEGATIVE); NITRITE,URINE NEGATIVE (NEGATIVE); OCCULT BLOOD,URINE NEGATIVE (NEGATIVE); PROTEIN,URINE NEGATIVE (NEGATIVE); UROBILINOGEN,URINE 0.2 (NORMAL) E.U./dL (NORMAL)
[2020-11-20 12:01] LABS: CHOL/HDL RATIO 5.4 (<5.0); CHOLESTEROL 193 mg/dL; HDL CHOLESTEROL 36 mg/dL; LDL CHOLESTEROL,CALCULATED 117 mg/dL; LDL/HDL RATIO 3.3 (<3.6); TRIGLYCERIDES 200 mg/dL; VLDL CHOLESTEROL 40 mg/dL
[2020-11-20 12:09] LABS: BACTERIA,URINE None Seen /HPF (None Seen); CLARITY,URINE CLEAR (CLEAR); CREATININE,URINE 91.9 mg/dL; MICROALBUM/CREATININE RATIO,UR 42.4 ug/mg (<30.0); MICROALBUMIN,URINE 3.9 mg/dL (0-300.0); RBC,URINE None Seen /HPF (0-5); SQUAMOUS EPITHELIAL CELL,UR NONE SEEN (<= Few); WBC,URINE 0-3 /HPF (0-3)
[2020-11-20 12:15] LABS: ESTIMATED AVERAGE GLUCOSE 169 mg/dL (70-100); HEMOGLOBIN A1c% 7.5 % (4.27-6.07)
== END ==
LOC: LAB.WCP 08:00
PROVIDERS: ATTEND Internal Medicine Nephrology
DX: E11.22 Type 2 diabetes mellitus with diabetic chronic kidney disease (principal); N18.32 Chronic kidney disease, stage 3b; N17.9 Acute kidney failure, unspecified
CPT/HCPCS: 36415; 80048; 80061; 81001; 82043; 82306; 82570; 83036; 83721; 83735; 84100; 84550

== ENCOUNTER 2021-04-24 07:59 | Outpatient (CLI) | payer MEDICARE, OTHER ==
[2021-04-24 12:21] LABS: BASOPHILS % (AUTO) 0.3 %; EOSINOPHILS # (AUTO) 0.1 10^3/uL (0.0-0.7); EOSINOPHILS % (AUTO) 1.9 %; HCT - HEMATOCRIT 39.1 % (42.0-52.0); HGB - HEMOGLOBIN 13.1 g/dL (14.0-18.0); LYMPHOCYTES # (AUTO) 0.9 10^3/uL (1.5-3.5); LYMPHOCYTES % (AUTO) 28.5 %; MEAN CORPUSCULAR HEMOGLOBIN 31.4 pg (27.0-31.0); MEAN CORPUSCULAR HGB CONC 33.5 g/dL (32.0-36.0); MEAN CORPUSCULAR VOLUME 93.8 fL (80.0-94.0); MEAN PLATELET VOLUME 10.1 fL (7.4-11.4); MONOCYTES # (AUTO) 0.3 10^3/uL (0.0-1.0); MONOCYTES % (AUTO) 9.9 %; NEUTROPHILS # (AUTO) 1.8 10^3/uL (1.5-6.6); NEUTROPHILS % (AUTO) 59.1 %; PLT - PLATELET COUNT 160 10^3/uL (130-450); RED BLOOD COUNT 4.17 10^6/uL (4.70-6.10); RED CELL DISTRIBUTION WIDTH 13.3 % (12.0-15.0); WHITE BLOOD COUNT 3.1 x10^3/uL (4.8-10.8)
[2021-04-24 12:29] LABS: ALBUMIN 3.9 g/dL (3.2-5.5); ALBUMIN/GLOBULIN RATIO 1.2 (1.0-2.2); ALKALINE PHOSPHATASE 52 IU/L (42-121); ALT ALANINE AMINOTRANSFERASE 26 IU/L (10-60); AST ASPARTATE AMINOTRANSFERASE 22 IU/L (10-42); BILIRUBIN,TOTAL 0.5 mg/dL (0.2-1.0); BUN - BLOOD UREA NITROGEN 36 mg/dL (6-20); CALCIUM 9.5 mg/dL (8.5-10.3); CARBON DIOXIDE - CO2 21 mmol/L (21-32); CHLORIDE 109 mmol/L (101-111); CHOLESTEROL 164 mg/dL; CREATININE 1.8 mg/dL (0.6-1.2); GFR - MDRD 37 (>89); GLUCOSE 205 mg/dL (70-100); HDL CHOLESTEROL 33 mg/dL; LDL CHOLESTEROL,CALCULATED 84 mg/dL; LDL/HDL RATIO 2.5 (<3.6); POTASSIUM 4.8 mmol/L (3.5-5.0); SODIUM 139 mmol/L (135-145); TOTAL PROTEIN 7.1 g/dL (6.7-8.2); TRIGLYCERIDES 233 mg/dL; VLDL CHOLESTEROL 47 mg/dL
[2021-04-24 12:33] LABS: CREATININE,URINE 97.3 mg/dL; MICROALBUM/CREATININE RATIO,UR 59.6 ug/mg (<30.0); MICROALBUMIN,URINE 5.8 mg/dL (0-300.0)
[2021-04-24 12:47] LABS: THYROID STIMULATING HORMONE 1.31 uIU/mL (0.34-5.60)
[2021-04-24 12:54] LABS: ESTIMATED AVERAGE GLUCOSE 166 mg/dL (70-100); HEMOGLOBIN A1c% 7.4 % (4.27-6.07)
== END 2021-04-24 23:59 | disposition home or self-care (01) ==
LOC: LAB.WCP 07:59
PROVIDERS: ATTEND Internal Medicine
DX: E11.42 Type 2 diabetes mellitus with diabetic polyneuropathy (principal); E78.5 Hyperlipidemia, unspecified; R97.20 Elevated prostate specific antigen [PSA]; E03.9 Hypothyroidism, unspecified
CPT/HCPCS: 36415; 80053; 80061; 82043; 82570; 83036; 83721; 84153; 84443; 85025

== ENCOUNTER 2021-06-04 08:00 | Outpatient (CLI) | payer MEDICARE, OTHER ==
[2021-06-04 11:51] LABS: BILIRUBIN,URINE NEGATIVE (NEGATIVE); GLUCOSE, URINE (UA) NEGATIVE (NEGATIVE); KETONES,URINE (UA) NEGATIVE (NEGATIVE); LEUKOCYTE ESTERASE, URINE NEGATIVE (NEGATIVE); NITRITE,URINE NEGATIVE (NEGATIVE); OCCULT BLOOD,URINE NEGATIVE (NEGATIVE); PH,URINE 5.5 PH (5.0-7.5); PROTEIN,URINE NEGATIVE (NEGATIVE); UROBILINOGEN,URINE 0.2 (NORMAL) E.U./dL (NORMAL)
[2021-06-04 11:55] LABS: CLARITY,URINE CLEAR (CLEAR)
[2021-06-04 11:59] LABS: MICROALBUM/CREATININE RATIO,UR 47.3 ug/mg (<30.0); MICROALBUMIN,URINE 5.2 mg/dL (0-300.0)
[2021-06-04 12:23] LABS: CALCIUM 9.4 mg/dL (8.5-10.3); MAGNESIUM 2.1 mg/dL (1.7-2.8); PHOSPHORUS 3.8 mg/dL (2.5-4.6); POTASSIUM 4.7 mmol/L (3.5-5.0); URIC ACID 7.3 mg/dL (2.6-7.2)
== END 2021-06-04 23:59 ==
LOC: LAB.WCP 08:00
PROVIDERS: ATTEND Internal Medicine Nephrology
DX: N18.32 Chronic kidney disease, stage 3b (principal)
CPT/HCPCS: 36415; 80048; 81001; 81003; 82043; 82306; 82570; 83735; 83970; 84100; 84550; 87086

== ENCOUNTER 2021-07-25 09:17 | Outpatient (CLI) | payer MEDICARE, OTHER ==
[2021-07-25 12:26] LABS: CALCIUM 9.2 mg/dL (8.5-10.3); PHOSPHORUS 3.6 mg/dL (2.5-4.6); POTASSIUM 5.3 mmol/L (3.5-5.0)
[2021-07-25 13:22] LABS: ESTIMATED AVERAGE GLUCOSE 163 mg/dL (70-100); HEMOGLOBIN A1c% 7.3 % (4.27-6.07)
== END 2021-07-25 09:18 | disposition home or self-care (01) ==
LOC: LAB.N 09:17
PROVIDERS: ATTEND Internal Medicine
DX: E11.42 Type 2 diabetes mellitus with diabetic polyneuropathy (principal); E11.22 Type 2 diabetes mellitus with diabetic chronic kidney disease; N18.32 Chronic kidney disease, stage 3b
CPT/HCPCS: 36415; 80048; 82306; 83036; 84100

== ENCOUNTER 2021-07-30 07:57 | Outpatient (CLI) | payer MEDICARE, OTHER ==
[2021-07-30 12:16] LABS: CALCIUM 9.3 mg/dL (8.5-10.3); POTASSIUM 4.7 mmol/L (3.5-5.0)
== END 2021-07-30 07:58 | disposition home or self-care (01) ==
LOC: LAB.N 07:57
PROVIDERS: ATTEND Internal Medicine Nephrology
DX: N17.9 Acute kidney failure, unspecified (principal)
CPT/HCPCS: 36415; 80048

== ENCOUNTER 2021-10-07 08:41 | Outpatient (CLI) | payer MEDICARE, OTHER ==
[2021-10-07 12:36] LABS: CALCIUM 9.3 mg/dL (8.5-10.3); PHOSPHORUS 3.3 mg/dL (2.5-4.6); POTASSIUM 4.9 mmol/L (3.5-5.0); URIC ACID 6.7 mg/dL (2.6-7.2)
[2021-10-07 12:43] LABS: BILIRUBIN,URINE NEGATIVE (NEGATIVE); GLUCOSE, URINE (UA) NEGATIVE (NEGATIVE); KETONES,URINE (UA) NEGATIVE (NEGATIVE); LEUKOCYTE ESTERASE, URINE NEGATIVE (NEGATIVE); NITRITE,URINE NEGATIVE (NEGATIVE); OCCULT BLOOD,URINE NEGATIVE (NEGATIVE); PROTEIN,URINE NEGATIVE (NEGATIVE); UROBILINOGEN,URINE 0.2 (NORMAL) E.U./dL (NORMAL)
[2021-10-07 12:44] LABS: CLARITY,URINE CLEAR (CLEAR)
[2021-10-07 12:52] LABS: BACTERIA,URINE None Seen /HPF (None Seen); RBC,URINE 0-5 /HPF (0-5); SQUAMOUS EPITHELIAL CELL,UR NONE SEEN (<= Few); WBC,URINE 0-3 /HPF (0-3)
[2021-10-07 12:54] LABS: CREATININE,URINE 96.8 mg/dL; MICROALBUM/CREATININE RATIO,UR 36.2 ug/mg (<30.0); MICROALBUMIN,URINE 3.5 mg/dL (0-300.0)
== END 2021-10-07 08:42 | disposition home or self-care (01) ==
LOC: LAB.N 08:41
PROVIDERS: ATTEND Internal Medicine Nephrology
DX: N18.32 Chronic kidney disease, stage 3b (principal)
CPT/HCPCS: 36415; 80048; 81001; 82043; 82306; 82570; 83970; 84100; 84550; 87086

== ENCOUNTER 2021-10-23 09:02 | Outpatient (CLI) | payer MEDICARE, OTHER ==
[2021-10-23 12:32] LABS: BASOPHILS % (AUTO) 0.3 %; EOSINOPHILS # (AUTO) 0.1 10^3/uL (0.0-0.7); EOSINOPHILS % (AUTO) 2.6 %; HCT - HEMATOCRIT 37.5 % (42.0-52.0); HGB - HEMOGLOBIN 12.4 g/dL (14.0-18.0); LYMPHOCYTES # (AUTO) 0.7 10^3/uL (1.5-3.5); LYMPHOCYTES % (AUTO) 23.5 %; MEAN CORPUSCULAR HEMOGLOBIN 31.4 pg (27.0-31.0); MEAN CORPUSCULAR HGB CONC 33.1 g/dL (32.0-36.0); MEAN CORPUSCULAR VOLUME 94.9 fL (80.0-94.0); MEAN PLATELET VOLUME 9.9 fL (7.4-11.4); MONOCYTES # (AUTO) 0.3 10^3/uL (0.0-1.0); NEUTROPHILS % (AUTO) 64.6 %; PLT - PLATELET COUNT 173 10^3/uL (130-450); RED BLOOD COUNT 3.95 10^6/uL (4.70-6.10); RED CELL DISTRIBUTION WIDTH 13.4 % (12.0-15.0); WHITE BLOOD COUNT 3.1 x10^3/uL (4.8-10.8)
[2021-10-23 12:40] LABS: ALBUMIN/GLOBULIN RATIO 1.3 (1.0-2.2); ALKALINE PHOSPHATASE 59 IU/L (42-121); ALT ALANINE AMINOTRANSFERASE 21 IU/L (10-60); AST ASPARTATE AMINOTRANSFERASE 25 IU/L (10-42); BILIRUBIN,TOTAL 0.5 mg/dL (0.2-1.0); BUN - BLOOD UREA NITROGEN 45 mg/dL (6-20); CALCIUM 9.3 mg/dL (8.5-10.3); CARBON DIOXIDE - CO2 22 mmol/L (21-32); CHLORIDE 106 mmol/L (101-111); CHOL/HDL RATIO 4.6 (<5.0); CHOLESTEROL 169 mg/dL; CREATININE 2.2 mg/dL (0.6-1.2); GFR - MDRD 30 (>89); GLUCOSE 155 mg/dL (70-100); HDL CHOLESTEROL 37 mg/dL; LDL CHOLESTEROL,CALCULATED 104 mg/dL; LDL/HDL RATIO 2.8 (<3.6); PHOSPHORUS 3.6 mg/dL (2.5-4.6); POTASSIUM 5.1 mmol/L (3.5-5.0); SODIUM 139 mmol/L (135-145); TOTAL PROTEIN 7.2 g/dL (6.7-8.2); TRIGLYCERIDES 141 mg/dL; VLDL CHOLESTEROL 28 mg/dL
[2021-10-23 12:49] LABS: THYROID STIMULATING HORMONE 1.65 uIU/mL (0.34-5.60)
[2021-10-23 13:08] LABS: ESTIMATED AVERAGE GLUCOSE 143 mg/dL (70-100); HEMOGLOBIN A1c% 6.6 % (4.27-6.07)
[2021-10-23 14:11] LABS: CREATININE,URINE 91.7 mg/dL; MICROALBUMIN,URINE 3.3 mg/dL (0-300.0); PROTEIN/CREATININE RATIO,URINE 0.2 (<=0.2)
== END 2021-10-23 09:03 | disposition home or self-care (01) ==
LOC: LAB.N 09:02
PROVIDERS: ATTEND Internal Medicine
DX: E11.40 Type 2 diabetes mellitus with diabetic neuropathy, unspecified (principal); N18.32 Chronic kidney disease, stage 3b; E03.9 Hypothyroidism, unspecified
CPT/HCPCS: 36415; 80053; 80061; 82043; 82306; 82570; 83036; 83721; 83970; 84100; 84156; 84443; 85025